=== PATIENT | female | born 1965 | race Caucasian/White ===

== ENCOUNTER → 2016-12-02 | Outpatient (CLI) | payer BC ==
[~2016-12-02] MED LIST: ASCO100061 PO; CHOL100027 PO; HYDR200T5 PO; LORA10CA2 PO; LORA10TA5 PO; RIZA1TAB7 PO; SYMIN8045 INH; TOPI100T45 PO
--- NOTE | 2016-12-03 12:32 | MAMMOGRAPHY REPORT ---
BILATERAL DIGITAL SCREENING MAMMOGRAM TOMOSYNTHESIS WITH CAD: 12/02/2016 CLINICAL HISTORY: Routine screening. Patient has no complaints. TECHNIQUE: Breast tomosynthesis in addition to standard 2D mammography was performed. Current study was also evaluated with a Computer Aided Detection (CAD) system. COMPARISON: Comparison is made to exams dated: 11/02/2014 mammogram, 11/01/2013 mammogram, 10/29/2012 ultrasound, 10/25/2010 ultrasound, 10/22/2009 mammogram - [facility], and 10/19/2008. BREAST COMPOSITION: There are scattered areas of fibroglandular density in both breasts. FINDINGS: The parenchymal pattern is unchanged. No developing mass, architectural distortion or clu ster of suspicious microcalcifications is seen in either breast. IMPRESSION: ACR BI-RADS CATEGORY 2: BENIGN There is no mammographic evidence of malignancy. A 1 year screening mammogram is recommended. The p atient will receive written notification of the results. Approximately 10% of breast cancers are not detected with mammography. A negative mammographic repor t should not delay biopsy if a clinically suggestive mass is present. Miriam Preciado M.D. ay/:12/02/2016 17:14:57 Senior Occupational Therapist: Iván Armstrong M, [facility] letter sent: Normal 1/2 BI-RADS Code: ACR BI-RADS Category 2: Benign
== END | disposition home or self-care (01) ==
LOC: C.MAMM 10:13
PROVIDERS: ATTEND Obstetrics & Gynecology
DX: Z12.31 Encounter for screening mammogram for malignant neoplasm of breast (principal)

== ENCOUNTER → 2017-01-27 | Outpatient (CLI) | payer BC ==
--- NOTE | 2017-01-27 09:08 | DIAGNOSTIC IMAGING REPORT ---
LEFT HAND MIN 3 VIEWS ROUTINE CLINICAL HISTORY: M32.9 Systemic lupus [id number] Bilateral dry eyesH04. COMPARISON: None. DISCUSSION: The bones and joint spaces appear intact. There is no evidence of fracture, dislocation or bony disease. There is no evidence for soft tissue swelling. IMPRESSION: Negative study. Electronically signed by: Fady Carmona M.D. 01/27/2017 9:07 AM Dictated Date/Time: 01/27/2017 9:06 AM
--- NOTE | 2017-01-27 09:10 | DIAGNOSTIC IMAGING REPORT ---
RIGHT HAND MIN 3 VIEWS ROUTINE CLINICAL HISTORY: M32.9 Systemic lupus [id number] Bilateral dry eyesH04. Right COMPARISON STUDY: None. FINDINGS: No fracture or dislocation. Soft tissues are unremarkable. No erosions. Cartilage spaces are maintained. Bone mineralization is intact. IMPRESSION: Unremarkable right hand. Electronically signed by: Cristiano Smith M.D. 01/27/2017 9:09 AM Dictated Date/Time: 01/27/2017 9:07 AM
== END | disposition home or self-care (01) ==
LOC: C.RAD1850 08:48
PROVIDERS: ATTEND Internal Medicine Rheumatology
DX: H04.123 Dry eye syndrome of bilateral lacrimal glands (principal); M32.9 Systemic lupus erythematosus, unspecified; M94.0 Chondrocostal junction syndrome [Tietze]

== ENCOUNTER → 2017-03-30 | Outpatient (CLI) | payer BC ==
--- NOTE | 2017-03-30 08:56 | DIAGNOSTIC IMAGING REPORT ---
CERVICAL WITHOUT CONTRAST HISTORY:51 [id number] Left hand weakness and numbness COMPARISON: None available. TECHNIQUE: Multiplanar multisequence MRI of the cervical spine was obtained without contrast. FINDINGS: The large ibqah-ea-jrxm localizer demonstrates no gross abnormality of the upper chest or neck soft tissues. The imaged posterior fossa is unremarkable without cerebellar tonsillar herniation. The cerebellar tonsils are somewhat low-lying projecting approximately 2 mm below the foramen magnum. The vertebral body heights are well-maintained without fracture. There is 2 mm anterolisthesis of C3 on C4 which is likely on a degenerative basis. There is no focal bone marrow or soft tissue edema. Signal within the cord is normal. No evidence of marrow replacing process. Multilevel discogenic degeneration and uncovertebral spurring is noted causing varying degrees of central and foraminal narrowing as below. C2-C3: Mild central posterior osteophytic spurring without significant central canal or foraminal narrowing. C3-C4: Mild intervertebral disc space narrowing with broad-based posterior disc osteophyte complex effaces the ventral thecal sac without significant central canal or foraminal narrowing. C4-C5: Moderate intervertebral disc space narrowing with broad-based posterior disc osteophyte complex and uncovertebral spurring causes mild central canal and mild to moderate left foraminal narrowing. The right foramen is generally patent. These findings are likely demonstrated on image 59 of the axial series. C5-C6: Moderate intervertebral disc space narrowing with annular fissure and broad-based posterior disc osteophyte complex with mild facet arthrosis causes mild central canal and moderate right foraminal narrowing. The left foramen is generally patent. C6-C7: Mild intervertebral disc space narrowing with broad-based posterior disc osteophyte complex formation and mild facet arthrosis causes mild central canal and mild left foraminal narrowing. The right foramen is generally patent. C7-T1: Normal. The remaining imaged upper thoracic levels also appear normal. IMPRESSION: 1. Moderate intervertebral disc space narrowing with broad-based posterior disc osteophyte complex formation at C4-C5 causes mild central canal and mild to moderate left foraminal narrowing. This may account for the patient's reported left-sided symptomatology. 2. At C5-C6 discogenic degeneration causes mild central canal and moderate right foraminal narrowing. 3. At C6-C7 mild facet arthrosis and discogenic degeneration contributes to mild central canal and mild left foraminal stenosis. 4. No fracture or bone marrow edema. The above report was generated using voice recognition software. It may contain grammatical, syntax or spelling errors. Electronically signed by: Remi Martinez M.D. 03/30/2017 8:54 AM Dictated Date/Time: 03/30/2017 8:45 AM
== END | disposition home or self-care (01) ==
LOC: C.MRIBC 07:48
PROVIDERS: ATTEND Physician Assistant
DX: R29.898 Other symptoms and signs involving the musculoskeletal system (principal)

== ENCOUNTER → 2017-04-09 | Outpatient (CLI) | payer BC ==
[~2017-04-09] MED LIST changes: +GADAVIST IV PRN
--- NOTE | 2017-04-09 09:35 | DIAGNOSTIC IMAGING REPORT ---
MRI OF THE BRAIN COMBO CLINICAL HISTORY: Left hand weakness. Numbness. Difficulty with word finding. COMPARISON STUDY: MRI of the brain dated 01/12/2014. TECHNIQUE: MRI of the brain was performed utilizing various T1 and T2-weighted sequences in the axial, sagittal, and coronal planes. Contrast-enhanced sequences were acquired following the administration of 9 cc of Gadavist. FINDINGS: Brain parenchyma: The brain parenchyma is normal in appearance. There is no hemorrhage or mass effect. There is no restricted diffusion to suggest acute ischemia. No enhancing mass lesion is identified on the postcontrast images. Osborn-white matter differentiation is preserved. No extra-axial fluid collection is seen. There is mild cerebellar tonsillar ectopia. Ventricles, sulci, and cisterns: Normal in configuration. Pituitary and sella: Unremarkable. Intracranial vasculature: Normal flow voids are maintained at the skull base. Orbits: The bony orbits are grossly intact. Orbital contents are normal in appearance. Sinuses and mastoids: Clear. Calvarium: Unremarkable. Cervical cord: Partially visualized cervical spinal cord is normal in morphology and signal intensity. IMPRESSION: No acute intracranial abnormality. Electronically signed by: Sander Luis M.D. 04/09/2017 9:34 AM Dictated Date/Time: 04/09/2017 9:31 AM
== END | disposition home or self-care (01) ==
LOC: C.MRIBC 08:46
PROVIDERS: ATTEND Psychiatry & Neurology Neurology
DX: R29.898 Other symptoms and signs involving the musculoskeletal system (principal); R20.0 Anesthesia of skin; R47.89 Other speech disturbances

== ENCOUNTER → 2017-05-15 | Outpatient (CLI) | payer BC ==
[~2017-05-15] MED LIST changes: -GADAVIST IV PRN
--- NOTE | 2017-05-15 12:00 | EEG Procedure Note ---
EEG Procedure Note Date of Service May 15, 2017. Start / End Times Start Time: 8:59 AM End Time: 9:19 AM Referring Physician GER Chang History This is a 51-year-old female with spells of decreased attentiveness. EEG for further evaluation of possible seizure etiology. Home Medication List Scheduled Ascorbic Acid (Ascorbic Acid), 1,000 MG PO DAILY Budesonide/Formoterol Fumarate (Symbicort 80-4.5 Mcg/Act), 1 PUFF INH BID Cholecalciferol (Vitamin D 1000 Unit), 2,000 INTER.UNIT PO DAILY Hydroxychloroquine Sulfate (Plaquenil), 200 MG PO DAILY Loratadine (Claritin), 10 MG PO DAILY Topiramate (Topamax), 100 MG PO QAM Topiramate (Topamax), 200 MG PO QPM Scheduled PRN Rizatriptan Benzoate (Rizatriptan Benzoate), 10 MG PO DAILY PRN for Migraine Miscellaneous Medications Loratadine (Claritin), 10 MG PO Description This is a 21 electrode EEG with a single channel dedicated to limited EKG. The electrodes were placed in accordance with the International 10-20 system. At the start of the recording the patient was in an awake state. Background was well organized and composed of symmetric mixed alpha and beta frequencies. There was a symmetric well-formed moderate amplitude 9-10 Hz posterior dominant rhythm that was reactive to eye opening and closure. Hyperventilation was not done. There was no state changes or sleep transients. Intermittent photic stimulation at various frequencies produced no EEG abnormalities, but patient did have clinical spells which were which were video reviewed At 15 Hz to 18 Hz photic stimulation the patient had episodes of slight head extension and bilateral hand shaking in pronation/supination. At around 22 Hz she was seen on video arching her back and hip thrusting. Around 24 Hz there is a combination of hand pronation/supination shaking, neck and back arching, and hip thrusting. Around 30 Hz there was alternating leg movement and shaking Between movements there was normal awake background activity. No focal slowing or epileptiform discharges. After photic stimulation the patient was not responding to the EEG techs questions. Despite being unresponsive to verbal cues , the patient had a normal awake background during this time. Interpretation This is a normal awake only routine EEG. There was no electrographic seizures or epileptiform discharges. Clinical Correlation Clinical events captured on video EEG are consistent with psychogenic nonepileptic events (otherwise known as pseudoseizures)
== END | disposition home or self-care (01) ==
LOC: C.NEUR 08:48
PROVIDERS: ATTEND Physician Assistant
DX: R68.89 Other general symptoms and signs (principal)

== ENCOUNTER → 2017-12-04 | Outpatient (CLI) | payer OTHER ==
[~2017-12-04] MED LIST changes: -LORA10TA5 PO; +LORA10TA6 PO
--- NOTE | 2017-12-07 12:41 | MAMMOGRAPHY REPORT ---
BILATERAL DIGITAL SCREENING MAMMOGRAM TOMOSYNTHESIS WITH CAD: 12/04/2017 CLINICAL HISTORY: Routine screening. Patient has no complaints. TECHNIQUE: Breast tomosynthesis in addition to standard 2D mammography was performed. Current study was also evaluated with a Computer Aided Detection (CAD) system. COMPARISON: Comparison is made to exams dated: 12/02/2016 mammogram, 11/30/2015 mammogram, 11/02/2014 m ammogram, 11/01/2013 mammogram, and 10/24/2011 mammogram - [facility]. BREAST COMPOSITION: There are scattered areas of fibroglandular density in both breasts. FINDINGS: There is a nodular 6 mm asymmetry seen within the left subareolar breast on the MLO view, n ot clearly evident on the CC view. Recommend additional imaging evaluation with spot compression veronica osynthesis views and possible breast ultrasound. The remainder of both breasts are stable compared to prior exams, without suspicious masses, calcific ations, or areas of architectural distortion noted. IMPRESSION: ACR BI-RADS CATEGORY 0: INCOMPLETE EVALUATION: NEED ADDITIONAL IMAGING EVALUATION Left breast asymmetry, for which additional imaging evaluation is recommended. The patient will be c alled to schedule an appointment. Approximately 10% of breast cancers are not detected with mammography. A negative mammographic report should not delay biopsy if a clinically suggestive mass is present. Mercedes Garner M.D. ah/:12/04/2017 16:26:19 Journeyman Welder: Roberta PERALTA)(Chip), [facility] letter sent: Addl Imaging 0 BI-RADS Code: ACR BI-RADS Category 0: Incomplete Evaluation: Need Additional Imaging Evaluation
== END | disposition home or self-care (01) ==
LOC: C.MAMM 08:50
PROVIDERS: ATTEND Obstetrics & Gynecology
DX: Z12.31 Encounter for screening mammogram for malignant neoplasm of breast (principal); N64.89 Other specified disorders of breast

== ENCOUNTER → 2017-12-23 | Outpatient (CLI) | payer OTHER ==
--- NOTE | 2017-12-24 07:58 | MAMMOGRAPHY REPORT ---
UNILATERAL LEFT DIGITAL DIAGNOSTIC MAMMOGRAM TOMOSYNTHESIS AND TARGETED LEFT ULTRASOUND: 12/23/2017 CLINICAL HISTORY: 52-year-old woman called back from screening mammography for a 6 mm nodular asymmet ry in the superior left breast on the MLO view. Family history of breast cancer = mother. TECHNIQUE: Spot compression left CC and MLO tomosynthesis images were obtained. COMPARISON: Comparison is made to exams dated: 12/04/2017 mammogram, 12/02/2016 mammogram, 11/30/2015 m ammogram, 11/02/2014 mammogram, 11/01/2013 mammogram, and 10/24/2011 mammogram - [facility]. BREAST COMPOSITION: There are scattered areas of fibroglandular density in the left breast. FINDINGS: The spot compression MLO tomosynthesis view of the left breast demonstrates possible persi stence of a 6 mm nodular asymmetry in the subareolar breast. No associated calcification or architec tural distortion. This is thought to project laterally based on the spot compression CC tomosynthesi s view although less conspicuous. There is no area of architectural distortion identified elsewhere in the visualized left breast. Targeted ultrasound was performed in the periareolar and subareolar left breast. In the 3:00 periare olar region, there is an isoechoic subtle possible intraductal mass versus fat lobule measuring 5.7 x 3.1 x 8.0 mm. This may possibly correlate with the mammographic finding and is indeterminate. Defi nitive characterization with ultrasound-guided core biopsy is recommended. Correlation with post pro cedure mammograms is also recommended to assess mammographicsonographic correlation for the 6 mm nod ular asymmetry. IMPRESSION: ACR BI-RADS CATEGORY 4: SUSPICIOUS, TARGETED ULTRASOUND ACR BI-RADS CATEGORY 4: SUSPICIO US 1. Ultrasound-guided core biopsy is recommended for a subtle isoechoic 8 mm mass versus prominent fa t lobule in the 3:00 periareolar left breast, which may possibly correlate with the mammographic find ing. Correlation with postprocedure mammograms is recommended to assess clip placement. These results and recommendations were discussed with the patient at the time of the exam. She tenta tively scheduled the biopsy prior to leaving our department. Approximately 10% of breast cancers are not detected with mammography. A negative mammographic report should not delay biopsy if a clinically suggestive mass is present. Miriam tierney/:12/23/2017 11:39:47 Maintenance Controller: Gayle PERALTA)(M), [facility] letter sent: Abnormal 4/5 BI-RADS Code: ACR BI-RADS Category 4: Suspicious Ultrasound BI-RADS: ACR BI-RADS Category 4: Suspici ous
== END | disposition home or self-care (01) ==
LOC: C.MAMM 10:41
PROVIDERS: ATTEND Obstetrics & Gynecology
DX: N64.89 Other specified disorders of breast (principal)

== ENCOUNTER → 2017-12-30 | Outpatient (CLI) | payer OTHER ==
--- NOTE | 2017-12-30 09:36 | Discharge Instructions ---
Discharge Instructions Procedure Procedure Date: Dec 30, 2017. Reason for visit: Left Mass. Discharge Discharge Date: Dec 30, 2017. Discharge Diagnosis: post left breast ultrasound guided core biopsy Instructions Activity Recommendations: Additional Limitations (see below) Return to School/Work: no limitations Recommended Home Diet: No Limitations Provider Instructions: ACTIVITY RECOMMENDATIONS: * No lifting, pushing, pulling or exercising the affected side for three days. RETURN TO SCHOOL/WORK: * You may return to work/school after the procedure, but do not perform any strenuous activities for 24 to 48 hours. MEDICATIONS: * Tylenol (two 325 mg) every four to six hours if needed for mild pain (if not allergic to Tylenol). DIET: * Resume previous diet. SPECIAL CARE INSTRUCTIONS: * Keep biopsy site dry for 24 hours. May shower after 24 hours, but do not soak (bathe) incision. * May remove Tegaderm (plastic patch) tomorrow AFTER showering. * Leave the steri-strips on for one week. Allow the steri-strips to fall off by themselves. If not off after one week, you may remove them. You may place a Bandaid crosswise over the strips, if desired. * Apply ice 10 minutes on and 10 minutes off as needed. * Wear a bra at bedtime to sleep more comfortably for 2-3 days. * Your referring physician should have the results after approximately 5 to 7 business days. * Call for unusual bleeding, fever, drainage, etc or if you have any questions call [phone] during normal business hours or after hours call Dr Preciado, . FOLLOW UP VISIT: Follow-up with Referring Physician as scheduled. Allergies Coded Allergies: Penicillins (Verified Allergy, Unknown, 01/12/14) Rofecoxib (Verified Allergy, Unknown, UNKN, 01/12/14) Sulfa Drugs (Verified Allergy, Unknown, 01/12/14) Ghazal Bowling Recommendations: Call your doctor if: * Temperature above 101 degrees * Pain not relieved by pain medicine ordered * There is increased drainage or redness from any incision * You have any unanswered questions or concerns. Your Doctors Instructions noted above were prepared by provider Miriam Preciado. Patient Signature Section: Patient Instructions Signature Page Tami Caldera Patient (or Guardian) Signature/Date: I have read and understand the instructions given to me by my caregivers. Caregiver/RN/Doctor Signature/Date: The above-named patient and/or guardian has received patient instructions on this date. + Original Patient Signature Page (only) stays with chart. Please make copy for patient.
--- NOTE | 2017-12-30 15:12 | MAMMOGRAPHY REPORT ---
ULTRASOUND GUIDED BIOPSY LEFT BREAST: 12/30/2017 CLINICAL HISTORY: 6 mm nodular asymmetry in the subareolar left breast, with possible sonographic cor relate in the 3:00 periareolar/retroareolar axis on ultrasound. Patient presents for ultrasound-guid ed core biopsy. COMPARISON: Comparison is made to exams dated: 12/23/2017 mammogram, 12/23/2017 ultrasound, 12/04/2017 mammogram, 12/02/2016 mammogram, 11/30/2015 mammogram, and 11/02/2014 mammogram - [facility]. PATIENT CONSENT: The procedure, risks and benefits were discussed with the patient and informed conse nt was obtained both verbally and in writing. Specific risks to this procedure include: bleeding, in fection, puncture of adjacent structure, nontarget biopsy, sampling error, pain, metal allergy and me dication reaction. PROCEDURE DESCRIPTION: A time out was performed and the left breast was agreed as the site of biopsy. The skin was prepped and draped in the usual sterile fashion. The isoechoic 6 mm mass in the 3:00 shanks bareolar breast was chosen as the target for biopsy. Subcutaneous and intraparenchymal 1% buffered li docaine, with and without epinephrine, was administered as local anesthesia. A skin incision was made . Through the incision, 5 samples were taken with a 14 gauge Achieve biopsy device. A ribbon shaped metallic marker was placed at the biopsy site. Hemostasis was achieved after manual compression. The patient tolerated the procedure well and there was no immediate complication. The samples were sent to the pathology department in an appropriately labeled container. Postprocedure left CC and MLO 2D and tomosynthesis images were obtained. A new ribbon-shaped biopsy marker clip is seen in the subareolar/3:00 periareolar left breast. Based on the MLO view, the biops y marker clip aligns with a 6 mm nodular asymmetry in question, confirming mammographicsonographic c orrelation. No significant postbiopsy hematoma identified. IMPRESSION: ULTRASOUND GUIDED BIOPSY Status post ultrasound-guided core biopsy of an isoechoic 6 mm mass in the 3:00 periareolar/subareola r left breast, with ribbon-shaped biopsy marker clip placed at the site. The patient will receive notification of the biopsy results from her referring physician. Miriam Preciado M.D. ay/:12/30/2017 10:14:00 Golf Club Manager: Gayle LAMAR(Iván)(M), [facility]
--- NOTE | 2017-12-30 15:15 | MAMMOGRAPHY REPORT ---
UNILATERAL LEFT DIGITAL DIAGNOSTIC MAMMOGRAM TOMOSYNTHESIS: 12/30/2017 CLINICAL HISTORY: Status post ultrasound-guided core biopsy of an isoechoic mass versus prominent fat lobule in the 3:00 periareolar left breast. Please refer to the report from left breast ultrasound-guided core biopsy performed at the same time for full detail. IMPRESSION: POST PROCEDURE IMAGING FOR MARKER PLACEMENT Please refer to the report from left breast ultrasound-guided core biopsy performed at the same time for full detail. Approximately 10% of breast cancers are not detected with mammography. A negative mammographic report should not delay biopsy if a clinically suggestive mass is present. Miriam Preciado M.D. ay/:12/30/2017 09:38:56 Welder 2Nd Shift: Alicia LAMAR(Iván)(Chip), [facility] BI-RADS Code: Post Procedure Imaging For Marker Placement
== END | disposition home or self-care (01) ==
LOC: C.MAMM 08:49
PROVIDERS: ATTEND Obstetrics & Gynecology
DX: N63.20 Unspecified lump in the left breast, unspecified quadrant (principal); D24.2 Benign neoplasm of left breast

== ENCOUNTER 2018-12-31 11:58 | Observation (INO) ==
[2018-12-31] MEDS ORDERED: SODIUM CHLORIDE 0.9% 1000ML 1,000 ML IV ONE (12:46)
[2018-12-31 13:18] LABS: Basophils # (auto) 0.06 K/uL (0-0.2); Basophils % (auto) 1.1 %; Eosinophils # (auto) 0.16 K/uL (0-0.5); Hemoglobin 13.9 g/dL (12.0-16.0); Immature Granulocytes # (auto) 0.01 K/uL (0.00-0.02); Immature Granulocytes % (auto) 0.2 %; Lymphocytes # (auto) 1.51 K/uL (1.2-3.4); Lymphocytes % (auto) 28.4 %; Mean Corpuscular Hgb Conc 32.3 g/dL (32-36); Mean Corpuscular Volume 91.1 fL (80-100); Mean Platelet Volume 11.2 fL (7.4-10.4); Monocytes # (auto) 0.36 K/uL (0.11-0.59); Monocytes % (auto) 6.8 %; Neutrophils # (auto) 3.21 K/uL (1.4-6.5); Neutrophils % (auto) 60.5 %; Platelet Count 213 K/uL (130-400); RDW Coefficient of Variation 12.9 % (11.5-14.5); RDW Standard Deviation 43.1 fL (36.4-46.3); Red Blood Count 4.72 M/uL (4.2-5.4); White Blood Count 5.31 K/uL (4.8-10.8)
--- NOTE | 2018-12-31 13:27 | XRay Report ---
XR chest 1V portable CLINICAL HISTORY: NEURO SYMPTOMS chest pain. Dyspnea. COMPARISON STUDY: 01/12/2014 FINDINGS: The bones soft tissues and hemidiaphragms are normal. The cardiomediastinal silhouette is n ormal. The lungs are clear. The pulmonary vasculature is normal. IMPRESSION: Negative chest. The above report was generated using voice recognition software. It may contain grammatical, syntax or spelling errors. Electronically signed by: Fady Carmona M.D. 12/31/2018 1:25 PM
[2018-12-31 13:31] LABS: Partial Thromboplastin Ratio 0.9; Partial Thromboplastin Time 25.4 Seconds (21.0-31.0); Prothrombin Time 10.5 Seconds (9.0-12.0)
[2018-12-31 13:37] LABS: Alanine Aminotransferase 23 U/L (12-78); Albumin Level 3.9 gm/dl (3.4-5.0); Aspartate Aminotransferase 20 U/L (15-37); BUN Creatinine Ratio 11.1 (10-20); Blood Urea Nitrogen 14 mg/dl (7-18); Calcium 9.4 mg/dl (8.5-10.1); Carbon Dioxide 24 mmol/L (21-32); Chloride 112 mmol/L (98-107); Creatinine Clr Calc Pharmacy 55.8 ml/min; Est GFR (African American) 58.2; Est GFR (Non-African American) 50.2; Glucose 88 mg/dl (70-99); Magnesium 2.5 mg/dl (1.8-2.4); Potassium 3.7 mmol/L (3.5-5.1); Sodium 143 mmol/L (136-145)
[2018-12-31 13:42] LABS: Albumin Globulin Ratio 1.1 (0.9-2); Alkaline Phosphatase 77 U/L (45-117); Bilirubin,Total 0.3 mg/dl (0.2-1); Globulin 3.6 gm/dl (2.5-4.0); Total Protein 7.5 gm/dl (6.4-8.2); Troponin I < 0.015 ng/ml (0-0.045)
--- NOTE | 2018-12-31 14:04 | CT Scan Report ---
CT head/brain wo con CT DOSE: 537.48 mGy.cm HISTORY: Mental status change Stroke evaluation TECHNIQUE: Multiaxial CT images of the head were performed without the use of intravenous contrast. A dose lowering technique was utilized adhering to the principles of ALARA. Comparison: None. Findings: The paranasal sinuses and mastoid air cells are clear. The calvarium and skull base are int act. The ventricles and sulci are within normal limits. There is no mass, hematoma, midline shift, or acute infarct. Impression: No acute intracranial abnormality. The above report was generated using voice recognition software. It may contain grammatical, syntax or spelling errors. Electronically signed by: Fady Carmona M.D. 12/31/2018 2:03 PM
--- NOTE | 2018-12-31 17:04 | History & Physical Report ---
Date of Service December 31, 2018 Assessment & Plan (1) Left facial numbness: Ddx includes complex migraine vs. TIA given the numbness & possible ptosis, then possible dysarthria (possible Wernicke's?) on the phone with her PCP. At this point, all symptoms have resolved. - MRI brain - Neurology consult in the morning - Telemetry monitoring - Hold off on anti-platelet therapy until seen by neurology (2) Migraine: History of migraines (though not typically with these neurologic symptoms). - Continue home migraine prophylaxis - Tylenol or triptan PRN (3) TIA (transient ischemic attack): Per patient and , she was told by a [facility] neurologist that she is likely having TIAs when she feels her left face get numb and has some transient ptosis. Despite this, she was not put on an anti-platelet agent, so I am unsure if this is the neurologist felt strongly about this or not. - Neuro consult as above (4) Asthma: No wheezing or shortness of breath. No exacerbation at this time. 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 Now just on observation. - Monitor; no inpatient needs. (6) DVT prophylaxis: SCDs - Low risk per calculator History of Present Illness Primary Care Provider: Salma Snell MD 53-year-old female with a history of migraines, SLE, trigeminal neuralgia, and possible TIAs who presents with facial numbness and confusion. Patient notes that she has had a headache over the last 2 days, taken her Maxalt both evenings before bed. This morning at approximately 10:30 AM, she noted some left-sided facial numbness while driving her car. She went to the pharmacy at [employer] and felt that she was not thinking clearly because she could not remember her daughter's birthday and was walking around [employer] aimlessly. She called her PCP who called an ambulance for her. She has a complex neurologic history: 1) She has complex migraines and is seen by Dr. Dunne. 2) She is seen by a [facility] neurologist and was recently diagnosed with trigeminal neuralgia and told she is probably having small TIAs. These episodes are left-sided facial droop that lasts several hours, then resolves. 3) She reported with Dr. Dunne that she has episodes of getting "pulled" to the left side with vertigo that resolves within seconds and was referred to an ENT. 4) She reportedly had possible seizures in the past where she fell on the ground and her eyes rolled in her head (this per her ). She was seen at [facility], had a home 24h EEG and this was normal. She was supposed to follow up for an inpatient EEG, but never pursued this. The last episode of this was "years ago" per her . Allergies Allergy/AdvReac Type Severity Reaction Status Date / Time Penicillins Allergy Unknown Verified 12/31/18 13:17 rofecoxib Allergy Unknown UNKN Verified 12/31/18 13:17 Sulfa (Sulfonamide Allergy Unknown Verified 12/31/18 13:17 Antibiotics) Home Medications Home Medications Medication Instructions Recorded Confirmed Type albuterol sulfate [ProAir HFA] 2 puff INHALATION UD PRN 12/31/18 12/31/18 History ascorbic acid (vitamin C) [Vitamin 1 g PO QAM 12/31/18 12/31/18 History C] budesonide-formoterol [Symbicort] 1 inh INHALATION QAM 12/31/18 12/31/18 History calcium carbonate [Calcium 500] 1 tab PO QAM 12/31/18 12/31/18 History carbamazepine 100 mg PO DAILY PRN 12/31/18 12/31/18 History cholecalciferol (vitamin D3) 1,000 unit PO QAM 12/31/18 12/31/18 History loratadine [Claritin] 10 mg PO QAM 12/31/18 12/31/18 History montelukast 10 mg PO PM 12/31/18 12/31/18 History ranitidine HCl 150 mg PO BID 12/31/18 12/31/18 History topiramate 200 mg PO BID 12/31/18 12/31/18 History venlafaxine 75 mg PO DAILY 12/31/18 12/31/18 History verapamil 240 mg PO DAILY 12/31/18 12/31/18 History Past Med/Surg History Medical History TIA (transient ischemic attack) (Acute) Asthma (Chronic) Migraine SLE (systemic lupus erythematosus related syndrome) Family History Other Cancer Heart disease Social History Preferred Language: Turkish Communication Ability: Effective Blocker Hand Required: No Beliefs That Will Affect Care: None Current Living Situation: Family Other Information That Helps Us Care for You: No Feels Safe at Home: Yes Safety Concerns: Feels Safe At This Time Smoking Status: Former smoker Do You Dip or Chew Tobacco: No Second Hand Exposure: No Tobacco Cessation Education Requested by Patient: No Hx Alcohol Use: No Hx Substance Use: No Review of Systems Constitutional: no fever, no chills and no sweats Eyes: no diplopia Ear, Nose, Mouth, Throat: no ear trauma, no nasal discharge and no dental pain Respiratory: no cough, no chest congestion and no dyspnea Cardiovascular: no chest pain, no dyspnea on exertion, no palpitations and no syncope Gastrointestinal: no abdominal pain, no belching, no constipation, no diarrhea/loose stools, no blood in stools and no melena Musculoskeletal: no back pain, no joint pain and no muscle weakness Integumentary: no rash, no skin ulcer and no erythema Neurologic: + loss of sensation (Face), + tingling, + headache(s), + abnormal speech, + confusion and + memory loss; no generalized weakness, no numbness and no paresthesia Psychiatric: no depression and no anxiety Endocrine: no fatigue, no polydipsia and no polyphagia Physical Exam Constitutional: WD/WN, vitals as above Eyes: EOM intact bilaterally; no conjunctival abnormality ENMT: external ear and nose normal, oropharynx normal Neck: trachea midline, no thyromegaly normal visual inspection Respiratory: normal respiratory effort, lungs clear to auscultation no respiratory distress Cardiovascular: RRR, no murmur, no edema Gastrointestinal (Abdomen): Inspection/Auscultation: abdomen normal to inspection; abdomen not distended Musculoskeletal: no cyanosis or clubbing, extremities motor strength 5/5 Skin: no rashes, warm and dry Neurologic: moves all extremities and awake Psychiatric: Orientation: alert, oriented to person and cooperative Results & Data Vital Signs (Past 12 Hours) Vital Signs Temp Pulse Pulse Resp BP BP Pulse Ox 12/31/18 16:16 75 20 137/90 98 12/31/18 15:06 69 18 128/87 98 12/31/18 13:49 68 18 137/86 98 12/31/18 12:08 36.8 C 79 20 163/90 H 98
[2018-12-31] MEDS ORDERED: ONDANSETRON INJ 2 MG/ML 2 ML VIAL IV PRN (17:14)
[2018-12-31] MEDS ORDERED: ACETAMINOPHEN 325 MG TAB PO PRN (17:14)
--- NOTE | 2018-12-31 18:16 | Magnetic Resonance Report ---
Brain MRI WITHOUT CONTRAST HISTORY: Facial tingling and dysarthria TECHNIQUE: Multiplanar multisequence MRI of the brain was performed without the use of contrast. COMPARISON STUDY: Head CT 12/31/2018. Brain MRI 04/09/2017. FINDINGS: There are no areas of restricted diffusion to suggest acute infarction. The midline structu res are intact. The paranasal sinuses are clear. The mastoid air cells are clear. The ventricles and sulci are within normal limits for age. There is no mass, hematoma, midline shift. The major vascular flow-voids at the skull base are well maintained. IMPRESSION: No acute intracranial abnormality. Electronically signed by: Cristiano Smith M.D. 12/31/2018 6:15 PM
--- NOTE | 2018-12-31 19:12 | Emergency Department Note ---
Entered by Seth Wise acting as a scribe for Giorgio López DO History of Present Illness General Chief complaint: Neuro Symptoms/Deficit Source: patient History of Present Illness Onset (ago): hour(s) (this morning) Location: face Pain Consistency: + now resolved Quality: + other (stroke-like symptoms) Associated symptoms: + other (slurred speech, left facial droop) The patient is a 53 year female who presents to the Emergency Room with complaints of currently resolved stroke-like symptoms. The patient reports that this morning both sides of her face became numb, reaching her hairline and did not travel behind her ears. She states that she then developed a left-sided facial droop, and she was told that her speech was slurred prior to arrival. She is unsure how long these symptoms lasted. She states that her symptoms are now resolved, and she is back to baseline per the at bedside. She reports that yesterday and the day prior she had a headache, but she has not had a headache today. She denies weakness, numbness, chest pain, nausea, vomiting, or diarrhea. She reports a history of similar symptoms, stating that she was diagnosed with TIA at that time. She reports a history of lupus, migraines, and trigeminal neuralgia. Home Medications Home Medications Medication Instructions Recorded Confirmed Type albuterol sulfate [ProAir HFA] 2 puff INHALATION UD PRN 12/31/18 12/31/18 History ascorbic acid (vitamin C) [Vitamin 1 g PO QAM 12/31/18 12/31/18 History C] budesonide-formoterol [Symbicort] 1 inh INHALATION QAM 12/31/18 12/31/18 History calcium carbonate [Calcium 500] 1 tab PO QAM 12/31/18 12/31/18 History carbamazepine 100 mg PO DAILY PRN 12/31/18 12/31/18 History cholecalciferol (vitamin D3) 1,000 unit PO QAM 12/31/18 12/31/18 History loratadine [Claritin] 10 mg PO QAM 12/31/18 12/31/18 History montelukast 10 mg PO PM 12/31/18 12/31/18 History ranitidine HCl 150 mg PO BID 12/31/18 12/31/18 History topiramate 200 mg PO BID 12/31/18 12/31/18 History venlafaxine 75 mg PO DAILY 12/31/18 12/31/18 History verapamil 240 mg PO DAILY 12/31/18 12/31/18 History Allergies Allergy/AdvReac Type Severity Reaction Status Date / Time Penicillins Allergy Unknown Verified 12/31/18 13:17 rofecoxib Allergy Unknown UNKN Verified 12/31/18 13:17 Sulfa (Sulfonamide Allergy Unknown Verified 12/31/18 13:17 Antibiotics) Past Med/Surg History Medical History TIA (transient ischemic attack) (Acute) Asthma (Chronic) Migraine SLE (systemic lupus erythematosus related syndrome) Family History Other Cancer Heart disease Social History Preferred Language: Serbian Communication Ability: Effective Pediatric Cardiologist Required: No Beliefs That Will Affect Care: None Current Living Situation: Family Other Information That Helps Us Care for You: No Feels Safe at Home: Yes Safety Concerns: Feels Safe At This Time Smoking Status: Former smoker Do You Dip or Chew Tobacco: No Second Hand Exposure: No Tobacco Cessation Education Requested by Patient: No Hx Alcohol Use: No Hx Substance Use: No Review of Systems See HPI for pertinent positives & negatives. and A total of 10 systems reviewed and were otherwise negative Physical Exam Vital Signs Vital Signs - 24 hr 12/31/18 12:08 12/31/18 13:49 12/31/18 15:06 Temperature 36.8 C Temperature Source Oral Sepsis Recent Fever Within 48 Hours No Sepsis New/Unexplained Change in Mental Status No Sepsis Action Taken by Nursing No Action Required Pulse Rate 79 Pulse Rate [Apical] 68 69 Pulse Rhythm [Apical] Pulse Strength [Apical] Respiratory Rate 20 18 18 Respiratory Effort / Characteristics Respiratory Depth Respiratory Pattern Blood Pressure 163/90 H Blood Pressure [Left Arm] Blood Pressure [Right Arm] 137/86 128/87 Blood Pressure Mean 114 Blood Pressure Mean [Left Arm] Blood Pressure Mean [Right Arm] 103 100 Blood Pressure Position [Left Arm] Pulse Oximetry 98 98 98 Oxygen Delivery Method Room Air Room Air Room Air 12/31/18 16:16 12/31/18 16:22 12/31/18 17:14 Temperature 36.7 C Temperature Source Oral Sepsis Recent Fever Within 48 Hours Sepsis New/Unexplained Change in Mental Status Sepsis Action Taken by Nursing Pulse Rate Pulse Rate [Apical] 75 71 Pulse Rhythm [Apical] Regular Pulse Strength [Apical] Normal Respiratory Rate 20 18 Respiratory Effort / Characteristics Non-Labored Respiratory Depth Normal Respiratory Pattern Regular Blood Pressure Blood Pressure [Left Arm] 142/64 H Blood Pressure [Right Arm] 137/90 Blood Pressure Mean Blood Pressure Mean [Left Arm] 90 Blood Pressure Mean [Right Arm] 105 Blood Pressure Position [Left Arm] Lying Pulse Oximetry 98 98 Oxygen Delivery Method Room Air Room Air Room Air GENERAL: Sitting up in bed, alert, well appearing, well nourished, no distress, non-toxic EYE EXAM: normal conjunctiva. PERRL and EOM's intact. OROPHARYNX: no exudate, no erythema, lips, buccal mucosa, and tongue normal and mucous membranes are moist NECK: supple, no nuchal rigidity, no adenopathy, non-tender LUNGS: Clear to auscultation. Normal chest wall mechanics HEART: no murmurs, S1 normal and S2 normal ABDOMEN: abdomen soft, non-tender, normo-active bowel, sounds, no masses, no rebound or guarding. BACK: Back is symmetrical on inspection and there is no deformity, no midline tenderness, no CVA tenderness. SKIN: no rashes and no bruising UPPER EXTREMITIES: upper extremities are grossly normal. LOWER EXTREMITIES: No pitting edema. NEURO EXAM: Normal sensorium, cranial nerves II-XII intact, normal speech, no weakness of arms, no weakness of legs. No drift. Finger to nose intact. Sensation intact. Course ED COURSE: Vital signs were reviewed and showed hypertension The patients medical record was reviewed The above diagnostic studies were performed and reviewed. ED treatments and interventions as stated above. 1230: The patient was evaluated in room B5. A complete history and physical examination was performed. 1417: I consulted Dr. Wynn [facility] Hospitalist. The patient will be reevaluated for hospitalization. 1426: I updated the patient on the current plan. She states that she woke up and temporarily felt some left-sided facial droop again, but this is now resolved. The patient is currently completely neurologically intact. Based on the patients age, coexisting illnesses, exam and lab findings the decision to treat as an inpatient was made. The patient remained stable while under my care. The patient will be evaluated for further management. Administered Medications Acetaminophen (Tylenol) 650 mg PO Q4H PRN PRN Reason: pain/fever Stop: 01/30/19 17:13 Last Admin: 12/31/18 18:54 Dose: 650 mg Documented by: [id number] Discontinued Medications Sodium Chloride (Nss 1000ml) 1,000 mls @ 999 mls/hr IV .Q1H1M ONE Stop: 12/31/18 13:46 Last Infusion: 12/31/18 14:02 Dose: 0 mls/hr Documented by: [id number] Admin: 12/31/18 13:04 Dose: 999 mls/hr Documented by: [id number] Medical Decision Making Differential Diagnosis Differential Diagnosis includes but is not limited to ischemic stroke, hemorrhagic stroke, bells palsy, mass, neoplasm, migraine headache, seizure, subarachnoid hemorrhage, TIA, and transient global amnesia. Medical Records Attestation: I reviewed the patient's medical records. Home Medications Current Medication List: was personally reviewed by me Laboratory Data Attestation: I reviewed the patient's lab results. Result diagrams: 12/31/18 12:54 12/31/18 12:54 Lab Results 12/31/18 12/31/18 12/31/18 Range/Units 12:54 12:54 12:54 WBC 5.31 (4.8-10.8) K/uL RBC 4.72 (4.2-5.4) M/uL Hgb 13.9 (12.0-16.0) g/dL Hct 43.0 (37-47) % MCV 91.1 (80-100) fL MCH 29.4 (25-34) pg MCHC 32.3 (32-36) g/dL RDW Std Deviation 43.1 (36.4-46.3) fL RDW Coeff of Estela 12.9 (11.5-14.5) % Plt Count 213 (130-400) K/uL MPV 11.2 H (7.4-10.4) fL Immature Gran % (Auto) 0.2 % Neut % (Auto) 60.5 % Lymph % (Auto) 28.4 % Dauphin % (Auto) 6.8 % Eos % (Auto) 3.0 % Baso % (Auto) 1.1 % Immature Gran # (Auto) 0.01 (0.00-0.02) K/uL Neut # (Auto) 3.21 (1.4-6.5) K/uL Lymph # (Auto) 1.51 (1.2-3.4) K/uL Dauphin # (Auto) 0.36 (0.11-0.59) K/uL Eos # (Auto) 0.16 (0-0.5) K/uL Baso # (Auto) 0.06 (0-0.2) K/uL PT 10.5 (9.0-12.0) Seconds INR 1.0 (0.9-1.1) APTT 25.4 (21.0-31.0) Seconds PTT Ratio 0.9 Sodium 143 (136-145) mmol/L Potassium 3.7 (3.5-5.1) mmol/L Chloride 112 H (98-107) mmol/L Carbon Dioxide 24 (21-32) mmol/L Anion Gap 7.0 (3-11) BUN 14 (7-18) mg/dl Creatinine 1.22 H (0.6-1.2) mg/dl Est Cr Clr Drug Dosing 55.8 ml/min Est GFR ( Amer) 58.2 Est GFR (Non-Af Amer) 50.2 BUN/Creatinine Ratio 11.1 (10-20) Glucose 88 (70-99) mg/dl POC Glucose (70-99) Calcium 9.4 (8.5-10.1) mg/dl Magnesium 2.5 H (1.8-2.4) mg/dl Total Bilirubin 0.3 (0.2-1) mg/dl AST 20 (15-37) U/L ALT 23 (12-78) U/L Alkaline Phosphatase 77 (45-117) U/L Troponin I < 0.015 (0-0.045) ng/ml Total Protein 7.5 (6.4-8.2) gm/dl Albumin 3.9 (3.4-5.0) gm/dl Globulin 3.6 (2.5-4.0) gm/dl Albumin/Globulin Ratio 1.1 (0.9-2) POC Ur Test (NEG) Blood Type Antibody Screen 12/31/18 12/31/18 12/31/18 Range/Units 12:58 13:00 13:10 WBC (4.8-10.8) K/uL RBC (4.2-5.4) M/uL Hgb (12.0-16.0) g/dL Hct (37-47) % MCV (80-100) fL MCH (25-34) pg MCHC (32-36) g/dL RDW Std Deviation (36.4-46.3) fL RDW Coeff of Estela (11.5-14.5) % Plt Count (130-400) K/uL MPV (7.4-10.4) fL Immature Gran % (Auto) % Neut % (Auto) % Lymph % (Auto) % Dauphin % (Auto) % Eos % (Auto) % Baso % (Auto) % Immature Gran # (Auto) (0.00-0.02) K/uL Neut # (Auto) (1.4-6.5) K/uL Lymph # (Auto) (1.2-3.4) K/uL Dauphin # (Auto) (0.11-0.59) K/uL Eos # (Auto) (0-0.5) K/uL Baso # (Auto) (0-0.2) K/uL PT (9.0-12.0) Seconds INR (0.9-1.1) APTT (21.0-31.0) Seconds PTT Ratio Sodium (136-145) mmol/L Potassium (3.5-5.1) mmol/L Chloride (98-107) mmol/L Carbon Dioxide (21-32) mmol/L Anion Gap (3-11) BUN (7-18) mg/dl Creatinine (0.6-1.2) mg/dl Est Cr Clr Drug Dosing ml/min Est GFR ( Amer) Est GFR (Non-Af Amer) BUN/Creatinine Ratio (10-20) Glucose (70-99) mg/dl POC Glucose 90 (70-99) Calcium (8.5-10.1) mg/dl Magnesium (1.8-2.4) mg/dl Total Bilirubin (0.2-1) mg/dl AST (15-37) U/L ALT (12-78) U/L Alkaline Phosphatase (45-117) U/L Troponin I (0-0.045) ng/ml Total Protein (6.4-8.2) gm/dl Albumin (3.4-5.0) gm/dl Globulin (2.5-4.0) gm/dl Albumin/Globulin Ratio (0.9-2) POC Ur Test NEG (NEG) Blood Type A Positive Antibody Screen NEGATIVE Imaging Data Radiologist's Impression: Radiology results as stated below per my review and the radiologist's interpretation: XR chest 1V portable CLINICAL HISTORY: NEURO SYMPTOMS chest pain. Dyspnea. COMPARISON STUDY: 01/12/2014 FINDINGS: The bones soft tissues and hemidiaphragms are normal. The cardiomed iastinal silhouette is normal. The lungs are clear. The pulmonary vasculature is normal. IMPRESSION: Negative chest. The above report was generated using voice recognition software. It may contain grammatical, syntax or spelling errors. Electronically signed by: Fady Carmona M.D. 12/31/2018 1:[address] head/brain wo con CT DOSE: 537.48 mGy.cm HISTORY: Mental status change Stroke evaluation TECHNIQUE: Multiaxial CT images of the head were performed without the use of intravenous contrast. A dose lowering technique was utilized adhering to the principles of ALARA. Comparison: None. Findings: The paranasal sinuses and mastoid air cells are clear. The calvarium and skull base are intact. The ventricles and sulci are within normal limits. There is no mass, hematoma, midline shift, or acute infarct. Impression: No acute intracranial abnormality. The above report was generated using voice recognition software. It may contain grammatical, syntax or spelling errors. Electronically signed by: Fady Carmona M.D. 12/31/2018 2:03 PM ECG Data Attestation: I personally reviewed and interpreted this ECG as follows: Indication: other (stroke-like symptoms) Rate (beats per minute): 74 Rhythm: sinus rhythm Findings: + other (normal axis); no PVC Blood Pressure Blood Pressure Findings: Normal blood pressure Blood Pressure Disposition: did not require urgent referral MDM Narrative Patient is a 53-year-old female who presents the ER for tingling throughout her entire face and a left-sided facial droop along with expressive aphasia. Left- sided facial droop did not involve the forehead. She notes that she was unable to talk. This was noted by bystanders and EMS was called. Patient does have a previous history of a TIA and complex migraines. She has no headache today but has had some recently. Labs were obtained and showed no significant leukocytosis or anemia. INR was unremarkable. BMP along with LFTs bilirubin was unremarkable. was negative. CT head was negative. Her neuro exam was completely intact when she presented here. She is no focal deficit. There is a short period time when I presented on 1 of her redevelops which she noted she had a little bit of a facial droop. I asked her to open her mouth she would not open to smile completely and a question if she was manipulating a left-sided facial droop at this time. I assisted her with opening and closing her mouth several times and this resolved very quickly. Patient and were updated bedside and admitted to the hospital for further workup. Impression & Plan TIA (transient ischemic attack) Discharge Plan Visit Data *Final* Discharge Date/Time: 12/31/18 16:22 Chief Complaint: Neuro Symptoms/Deficit ED Provider: Giorgio López Discharge Problem: TIA (transient ischemic attack) Patient Disposition: Admitted As Inpatient Discharge Instructions Interventions: ED Discharge Assessment Last Done: 12/31/18 16:22 The scribe's documentation has been prepared under my direction and personally reviewed by me in its entirety. I confirm that the note above accurately reflects all work, treatment, procedures, and medical decision making performed by me.
[2018-12-31] MEDS: TOPIRAMATE 100 MG TAB PO SCH (20:14)
[2018-12-31] MEDS ORDERED: MONTELUKAST SODIUM 10 MG TABLET PO SCH (21:00)
[2019-01-01 06:40] LABS: Hematocrit (blood only) 40.2 % (37-47); Hemoglobin 13.2 g/dL (12.0-16.0); Mean Corpuscular Hgb Conc 32.8 g/dL (32-36); Mean Corpuscular Volume 89.3 fL (80-100); Platelet Count 207 K/uL (130-400); RDW Standard Deviation 41.9 fL (36.4-46.3); White Blood Count 4.01 K/uL (4.8-10.8)
[2019-01-01 07:15] LABS: BUN Creatinine Ratio 12.9 (10-20); Calcium 8.9 mg/dl (8.5-10.1); Est GFR (African American) 55.9; Est GFR (Non-African American) 48.3; Magnesium 2.3 mg/dl (1.8-2.4); Potassium 3.8 mmol/L (3.5-5.1)
[2019-01-01] MEDS: TOPIRAMATE 100 MG TAB PO SCH (08:27)
[2019-01-01] MEDS ORDERED: BUDESONIDE/FORMOTEROL FUMARATE 160/4.5 60 PUFFS/INHALER INH SCH (09:00)
[2019-01-01] MEDS ORDERED: VERAPAMIL HCL 240 MG TABCR PO SCH (09:00)
[2019-01-01] MEDS ORDERED: VENLAFAXINE HCL XR 75 MG CAPXR PO SCH (09:00)
--- NOTE | 2019-01-01 13:45 | Neurology Consultation ---
Date of Consultation January 01, 2019 Assessment & Plan (1) Migraine with aura: This is a 53-year-old female who presents with episode of face tingling mostly on the left, facial droop, and confusion yesterday that was most likely related to migraine headaches that she has been having recently. In addition topiramate can cause cognitive dysfunction and word finding trouble. Symptoms may have been exacerbated by anxiety. Considering that the patient has had facial tingling and left facial droop multiple times in the past, this indicates that the symptoms are not vascular, and I have no concern for TIA at this time. 2) reports of unresponsive episodes with eye fluttering. Appears to be an ongoing problem. My suspicion is that this may be consistent with psychogenic nonepileptic events, but the patient does need to follow-up in neurology clinic for further evaluation and likely needs an epilepsy monitoring unit to capture and diagnosis spells. Recommendations: No additional workup needed in hospital at this time. Follow-up in neurology clinic for migraine care and for further evaluation of unresponsive episodes. Instructed patient to call our clinic if there is any questions or concerns. Patient does already have follow-up appointment with Dr. Dunne in January. Thank you for allowing me to participate in this patient's care. If there is any questions or concerns, feel free to call/page me. History of Present Illness Reason for Consultation: Consultation for episode of TIA versus migraine Attending Physician: Neptali Norris MD History of Present Illness This is a 53-year-old female who presents for the above evaluation. She reports that yesterday while she was going to [employer] she had episode of left facial droop. She reports that she has had frequent left facial droop in the past possibly related to migraine headaches. In addition she felt like her whole face was tingling that day. Again she has had multiple episodes of face tingling in the past possibly related to migraine headaches. What concerned her yesterday is she felt that she had increased confusion when she went to the pharmacy to filler picker medications. She reports that she was unable to remember her daughter's birthday or her 's birthday. She felt foggy and confused. She had had a severe migraine headache Thursday and and had a return of the migraine headache Thursday afternoon. She reports that she still feels a little fuzzy in the head this morning. She also reports that this morning the face tingling is mostly on the left side now. is also concerned that she had a seizure-like events in the emergency room yesterday. He reports that she has had these events previously in the past. Per the report and chart reports it has been documented that she has had staring events since she was a teenager. Has been reports that she has had these events of eye fluttering and unresponsiveness lasting about a minute for many years. Patient reports that is typically precipitated by stress. Patient has seen an epilepsy neurologist at [place] regarding these unresponsive events. She got ambulatory EEG in 2018 unfortunately was disconnected early and only 9 hours were recorded but it was normal. Epilepsy neurologist at [place] had recommended epilepsy monitoring unit stay for further evaluation, but the patient declined. EEG in 2017 was read by myself and noted to be normal but the patient did have multiple clinical events that were consistent with psychogenic nonepileptic events. Additional review of systems the patient reports that she feels more tired and is sleeping more. She reports increase in the wrong word substitution and word finding trouble. She does report the last time that she saw Dr. Dunne that her topiramate was increased. In addition she also reports a sharp pain over the occiput and temporal area of her head. She does report some jaw pain and there are is some question of possible trigeminal neuralgia component. MRI of the brain report and images reviewed by myself and is normal. Past medical history significant for lupus which is reportedly under control, migraine headaches with aura, benign positional vertigo, and at least one documented psychogenic nonepileptic events on video EEG. Family history: Father with [place]. No strokes or blood clots in the family at a young age Social: Patient is normally independent her activities of daily living. No tobacco use. Allergies Allergy/AdvReac Type Severity Reaction Status Date / Time Penicillins Allergy Unknown Verified 12/31/18 13:17 rofecoxib Allergy Unknown UNKN Verified 12/31/18 13:17 Sulfa (Sulfonamide Allergy Unknown Verified 12/31/18 13:17 Antibiotics) Home Medications Home Medications Medication Instructions Recorded Confirmed Type albuterol sulfate [ProAir HFA] 2 puff INHALATION UD PRN 12/31/18 12/31/18 History ascorbic acid (vitamin C) [Vitamin 1 g PO QAM 12/31/18 12/31/18 History C] budesonide-formoterol [Symbicort] 1 inh INHALATION QAM 12/31/18 12/31/18 History calcium carbonate [Calcium 500] 1 tab PO QAM 12/31/18 12/31/18 History carbamazepine 100 mg PO DAILY PRN 12/31/18 12/31/18 History cholecalciferol (vitamin D3) 1,000 unit PO QAM 12/31/18 12/31/18 History loratadine [Claritin] 10 mg PO QAM 12/31/18 12/31/18 History montelukast 10 mg PO PM 12/31/18 12/31/18 History ranitidine HCl 150 mg PO BID 12/31/18 12/31/18 History topiramate 200 mg PO BID 12/31/18 12/31/18 History venlafaxine 75 mg PO DAILY 12/31/18 12/31/18 History verapamil 240 mg PO DAILY 12/31/18 12/31/18 History Patient History Medical History TIA (transient ischemic attack) (Acute) Asthma (Chronic) Migraine SLE (systemic lupus erythematosus related syndrome) Family History Other Cancer Heart disease Social History Preferred Language: Tajik Communication Ability: Effective Radiologic Technology Instructor Required: No Beliefs That Will Affect Care: None Current Living Situation: Family Other Information That Helps Us Care for You: No Feels Safe at Home: Yes Safety Concerns: Feels Safe At This Time Smoking Status: Former smoker Do You Dip or Chew Tobacco: No Second Hand Exposure: No Tobacco Cessation Education Requested by Patient: No Hx Alcohol Use: No Hx Substance Use: No Review of Systems Review of Systems: All systems reviewed & are unremarkable except as noted in HPI & below Physical Exam Physical Exam: Gen.: Patient is alert and oriented in no acute distress lying in bed Heart: Regular rate and rhythm Extremities: No gross deformities or rashes noted Neurological examination: Mental status: Patient is alert and oriented to person place and time. Able to give own history. Good fund of knowledge. Attention and concentration normal for the situation. Recent and remote memory intact Speech is fluent without any dysarthria or aphasia noted Cranial nerves: Funduscopic examination was difficult to visualize. Pupils equally round and reactive to light. Extraocular muscles intact without nystagmus. No facial asymmetry noted. Facial sensation intact, but does report altered sensation on the left upper and lower face which appears to split midline. Tongue midline. Good palatal elevation. Good shoulder shrug bilaterally. Hearing grossly intact voice. Strength: 5/5 both proximal and distal in all extremities. No arm drift.Tone is normal. Sensation: Grossly intact to light touch in all extremities. Negative Romberg Deep tendon reflexes: +2 in bilateral biceps and patellar. Coordination: Patient has good finger to nose without dysmetria Gait is within normal limits and stable. No ataxia Results & Data Vital Signs (Past 12 Hours) Vital Signs Temp Pulse Resp BP Pulse Ox 01/01/19 11:36 78 18 131/82 97 01/01/19 07:34 36.7 C 71 18 116/73 100 01/01/19 03:47 36.6 C 79 18 102/64 96
--- NOTE | 2019-01-01 15:17 | Discharge Summary ---
Date of Service January 01, 2019 Admission HPI Per Admitting Provider 53-year-old female with a history of migraines, SLE, trigeminal neuralgia, and possible TIAs who presents with facial numbness and confusion. Patient notes that she has had a headache over the last 2 days, taken her Maxalt both evenings before bed. This morning at approximately 10:30 AM, she noted some left-sided facial numbness while driving her car. She went to the pharmacy at [employer] and felt that she was not thinking clearly because she could not remember her daughter's birthday and was walking around [employer] aimlessly. She called her PCP who called an ambulance for her. She has a complex neurologic history: 1) She has complex migraines and is seen by Dr. Dunne. 2) She is seen by a [facility] neurologist and was recently diagnosed with trigeminal neuralgia and told she is probably having small TIAs. These episodes are left-sided facial droop that lasts several hours, then resolves. 3) She reported with Dr. Dunne that she has episodes of getting "pulled" to the left side with vertigo that resolves within seconds and was referred to an ENT. 4) She reportedly had possible seizures in the past where she fell on the ground and her eyes rolled in her head (this per her ). She was seen at [facility], had a home 24h EEG and this was normal. She was supposed to follow up for an inpatient EEG, but never pursued this. The last episode of this was "years ago" per her . Principal Diagnosis Complex migraine Discharge Exam Constitutional WD/WN, vitals as above Eyes EOM intact bilaterally; no conjunctival abnormality ENMT external ear and nose normal, oropharynx normal Neck trachea midline, no thyromegaly normal visual inspection Respiratory normal respiratory effort, lungs clear to auscultation no respiratory distress Cardiovascular RRR, no murmur, no edema Gastrointestinal (Abdomen) Inspection/Auscultation: abdomen normal to inspection; abdomen not distended Musculoskeletal no cyanosis or clubbing, extremities motor strength 5/5 Skin no rashes, warm and dry Neurologic moves all extremities and awake Psychiatric Orientation: alert, oriented to person and cooperative Discharge Data Allergies Allergy/AdvReac Type Severity Reaction Status Date / Time Penicillins Allergy Unknown Verified 12/31/18 13:17 rofecoxib Allergy Unknown UNKN Verified 12/31/18 13:17 Sulfa (Sulfonamide Allergy Unknown Verified 12/31/18 13:17 Antibiotics) Consultations 12/31/18 14:18 ED Decision to Admit Stat 12/31/18 17:14 Consult Neurology Routine Ordered Studies 12/31/18 12:37 CT head/brain wo con Stat 12/31/18 17:14 MR brain wo con Routine Hospital Course (1) Left facial numbness: Ddx includes complex migraine vs. TIA given the numbness & possible ptosis, then possible dysarthria (possible Wernicke's?) on the phone with her PCP. At this point, all symptoms have resolved. - MRI brain on 12/31 did not show any stroke or microvasculture disease. - Neurology felt this was part of her complex migraines. No need for anti- platelet as this was not a stroke or TIA. (2) Migraine: History of migraines (though not typically with these neurologic symptoms). - Continue home migraine prophylaxis - Tylenol or triptan PRN (3) TIA (transient ischemic attack): Per patient and , she was told by an ED that she is likely having TIAs when she feels her left face get numb and has some transient ptosis. - It was felt by the neurologist and myself that she is not having TIAs. That this is more likely a component of migraine. - No need for aspirin as outpatient (4) Asthma: No wheezing or shortness of breath. No exacerbation at this time. 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 Now just on observation. - Monitor; no inpatient needs. (6) DVT prophylaxis: SCDs - Low risk per calculator Total Time Total Time Spent Total Time Spent (In Minutes): 35 Discharge Plan Discharge Items Patient Disposition: Home - Self-Care Reason For Visit: FACIAL DROOP AND CONFUSION Discharge Diagnosis: Complex migraine Discharge Goals: Decrease discomfort and Diagnostic testing Activity: Resume your previous activity Non-emergency contact: Primary Care Provider and Neurologist Call non-emergency contact if: your symptoms worsen Follow-up/Referrals: Nic Dunne III, MD [Family Provider] - (Please keep your normally scheduled appointment.) Salma Snell MD [Primary Care Provider] - Diet: Regular Addtl Provider Instructions: [facility], You were admitted to the hospital with left facial numbness and confusion. We did an MRI and did not see any sign of a stroke or any prior small strokes. We do not think you are having mini-strokes at home. We feel these are likely an aspect of your complex migraine headaches. Please continue your home medications. Please follow up with Dr. Dunne in the clinic. Prescriptions: Continued ascorbic acid (vitamin C) [Vitamin C] 1,000 mg Tablet 1 g PO QAM RF: 0 venlafaxine 75 mg capsule,extended release 24hr 75 mg PO DAILY RF: 0 carbamazepine 100 mg tablet extended release 12 hr 100 mg PO DAILY PRN (Reason: Pain) RF: 0 ranitidine HCl 150 mg tablet 150 mg PO BID RF: 0 verapamil 240 mg tablet extended release 240 mg PO DAILY RF: 0 montelukast 10 mg tablet 10 mg PO PM RF: 0 calcium carbonate [Calcium 500] 500 mg calcium (1,250 mg) Tablet,Chewable 1 tab PO QAM RF: 0 topiramate 200 mg tablet 200 mg PO BID RF: 0 albuterol sulfate [ProAir HFA] 90 mcg/actuation HFA aerosol inhaler 2 puff inhalation UD PRN (Reason: Shortness Of Breath Or Wheezing) RF: 0 loratadine [Claritin] 10 mg Tablet 10 mg PO QAM RF: 0 cholecalciferol (vitamin D3) 1,000 unit Tablet 1,000 unit PO QAM RF: 0 Symbicort 160-4.5 mcg/actuation HFA aerosol inhaler 1 inh inhalation QAM RF: 0 Stand-Alone Forms: [facility] Discharge Orders: Discharge Order (Routine); Ordered 01/01/19 Ordered By: Neptali Norris Admission Data Admit Date/Time: 12/31/18 16:01 Attending Provider: Neptali Norris Admit Provider: Neptali Norris Primary Care Provider: Salma Snell Other Providers: Jordan Wynn ; Lizeth Ashby Service: Telemetry Medical Other Interventions: Discharge Summary Assessment (RN) Last Done: 01/01/19 13:49 DC Date/Time DO NOT enter until pt leaves facility: 01/01/19 14:23
== END 2019-01-01 14:23 | disposition home or self-care (01) ==
LOC: ED 11:58 → 2N 11:58

== ENCOUNTER 2020-02-05 04:28 | Inpatient (IN) ==
[2020-02-05] MEDS ORDERED: SODIUM CHLORIDE 0.9% 500 ML IV STA (05:14)
[2020-02-05 05:23] LABS: Appearance Urine Cloudy (Clear); Bacteria Urine Automated 4+ (Negative); Blood Urine 3+ (Negative); Color Urine Dark Yellow; Epithelial Cell Urine Auto 20-30 /lpf (0-5); Glucose Urine UA Negative (Negative); Ketones Urine Trace (Negative); Leukocyte Esterase Urine 2+ (Negative); Nitrite Urine Positive (Negative); Protein Urine 1+ (Negative); RBC Urine Automated >30 /hpf (0-4); Urobilinogen Urine Negative (Negative); WBC Urine Automated >30 /hpf (0-5)
[2020-02-05 05:39] LABS: Hematocrit (blood only) 46.4 % (37-47); Hemoglobin 15.6 g/dL (12.0-16.0); Mean Corpuscular Hgb Conc 33.6 g/dL (32-36); Mean Corpuscular Volume 89.2 fL (80-100); Mean Platelet Volume 12.1 fL (7.4-10.4); Platelet Count 238 K/uL (130-400); RDW Coefficient of Variation 12.9 % (11.5-14.5); White Blood Count 9.31 K/uL (4.8-10.8)
[2020-02-05] MEDS ORDERED: MoRPHine SULFATE 4 MG/ML 1 ML CARP\\VIAL IV STA (05:42)
[2020-02-05] MEDS ORDERED: ONDANSETRON INJ 2 MG/ML 2 ML VIAL IV STA (05:42)
[2020-02-05 05:48] LABS: Bilirubin Urine Negative (Negative); Ictotest Urine Negative (Negative)
[2020-02-05 06:05] LABS: BUN Creatinine Ratio 8.3 (10-20); Calcium 9.5 mg/dl (8.5-10.1); Est GFR (African American) 50.6; Est GFR (Non-African American) 43.7; Potassium 3.6 mmol/L (3.5-5.1)
--- NOTE | 2020-02-05 06:41 | CT Scan Report ---
CT OF THE ABDOMEN AND PELVIS WITH CONTRAST CLINICAL HISTORY: L flank pain, back pain, abd pain COMPARISON STUDY: Pelvic ultrasound January 25, 2016. Abdominal ultrasound January 11, 2016. TECHNIQUE: Following IV administration of 91 mL of Optiray-320, axial images of the abdomen and pelvi s were obtained from the lung bases to the proximal femurs. Images were reviewed in the axial, sagitt al, and coronal planes. IV contrast was administered without complication. Automated exposure contro l was utilized for the study. A dose lowering technique was utilized adhering to the principles of A TAJ. CT DOSE: 873.23 mGy.cm FINDINGS: Lung bases are clear. Note is made of mild left hydronephrosis. There is a 5 mm left renal pelvis calculus and a 5 mm left ureteropelvic junction calculus. There is a 3 mm calculus within lowe r pole of the left kidney. No additional urinary calculi are identified. The liver, spleen, adrenal g lands and pancreas are unremarkable. There is no evidence for a bowel obstruction. There is no ascite s or lymphadenopathy. Caliber and wall thickness of small and large bowel are normal. Major vasculatu re is patent. IMPRESSION: 1. 5 mm left ureteropelvic junction calculus and a 5 mm left renal pelvis calculus. Resultant mild le ft hydronephrosis. 2. 3 mm left renal calculus. ACT 112: Negative or not required by law. Electronically signed by: Bakari Covarrubias M.D. 02/05/2020 6:40 AM
[2020-02-05] MEDS ORDERED: cefTRIAXone SODIUM 1,000 MG/50 ML BAG IV STA (07:03)
[2020-02-05] MEDS ORDERED: SODIUM CHLORIDE 0.9% 1000ML 1,000 ML IV SCH (07:15)
[2020-02-05] MEDS ORDERED: KETOROLAC TROMETHAMINE 15 MG/ML VIAL IV STA (07:42)
--- NOTE | 2020-02-05 07:54 | History & Physical Report ---
Date of Service February 05, 2020 Assessment & Plan (1) Renal colic: Pt with clinical symptoms, will treat with parenteral pain medicine, antiemetics, and Flomax, strain urine CT of abdomen pelvis, 02/05/20 IMPRESSION: 1. 5 mm left ureteropelvic junction calculus and a 5 mm left renal pelvis ca lculus. Resultant mild left hydronephrosis. 2. 3 mm left renal calculus. Patient is abnormal urinalysis concerning for urinary tract infection present on admission she is given Rocephin 2 g intravenously urine culture will be sent (2) Depression: (3) Systemic lupus erythematosus: Currently patient takes no medication for this (4) Fibromyalgia: Refill but fibromyalgia is stable she typically takes Tegretol and occasionally will take Topamax both for headaches and fibromyalgia pain (5) Asthma: Her asthma has been stable most recently History of Present Illness Primary Care Provider: Salma Snell MD 54-year-old female whose had stuttering back pain for the last 3 days. Usually was in her center back rating to her mid central abdomen would last for a few moments usually improve with ambulation. On the day of admission it awoke her in the morning was more severe, ended up radiating to her left flank. Patient present to the ER where she is found to have a 5 mm left UPJ calculus with mild hydro nephrosis. Patient was seen in the ER be taken to the operating suite by Dr. Lozada With medical problems are stable she has had no bleeding issues no problems or chest pain pressure shortness of breath or orthopnea most recently Allergies Allergy/AdvReac Type Severity Reaction Status Date / Time Penicillins Allergy Unknown Hives Verified 02/05/20 05:37 Sulfa (Sulfonamide Allergy Unknown HIVES Verified 02/05/20 05:37 Antibiotics) ibuprofen [From Advil] Allergy DYSPEPSIA Verified 02/05/20 05:37 naproxen [From Aleve] Allergy DYSPEPSIA Verified 02/05/20 05:37 rofecoxib AdvReac Unknown UNKN Verified 02/05/20 05:37 Home Medications Home Medications Medication Instructions Recorded Confirmed Type albuterol sulfate [ProAir HFA] 2 puff INHALATION UD PRN 12/31/18 02/05/20 History ascorbic acid (vitamin C) [Vitamin 1 g PO QAM 12/31/18 02/05/20 History C] budesonide-formoterol [Symbicort] 1 inh INHALATION QAM 12/31/18 02/05/20 History calcium carbonate [Calcium 500] 1 tab PO QAM 12/31/18 02/05/20 History carbamazepine 100 mg PO DAILY PRN 12/31/18 02/05/20 History cholecalciferol (vitamin D3) 1,000 unit PO QAM 12/31/18 02/05/20 History loratadine [Claritin] 10 mg PO QAM 12/31/18 02/05/20 History montelukast 10 mg PO PM 12/31/18 02/05/20 History rizatriptan 10 mg disintegrating 10 mg PO DIRECTED PRN #27 tab 03/31/19 02/05/20 History tablet budesonide-formoterol HFA 80 2 puffs INHALATION BID gm 04/11/19 02/05/20 History mcg-4.5 mcg/actuation aerosol inhaler diclofenac sodium 1 % topical gel 1 % TOPICAL .Applied to affected 04/11/19 02/05/20 History #1 gm hydrocodone 5 mg-acetaminophen 500 1 cap PO DIRECTED PRN cap 04/11/19 02/05/20 History mg capsule topiramate 100 mg tablet 100 mg PO BID #180 tab 01/10/20 02/05/20 Rx fremanezumab-vfrm 225 mg/1.5 mL 225 mg SUBCUT MONTHLY 30 Days #1.5 01/17/20 02/05/20 Rx subcutaneous syringe ml Past Med/Surg History Medical History Asthma (Chronic) 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) Cervical radiculopathy (Acute) Depression (Acute) Fibromyalgia (Acute) Migraine Migraine with aura SLE (systemic lupus erythematosus related syndrome) Spells of decreased attentiveness (Acute) Vitamin D deficiency (Acute) Surgical History S/P breast biopsy, left 12/31/17, Fibroadenoma, Negative for DCIS and invasive CA S/P excision of lipoma Thigh Family History Mother Breast cancer Hepatic failure Father Cancer Myocardial infarction Other Heart disease Social History Preferred Language: Frisian Communication Ability: Effective Scow Hand Required: No Beliefs That Will Affect Care: None Current Living Situation: Spouse and Family Other Information That Helps Us Care for You: No Feels Safe at Home: Yes Safety Concerns: Feels Safe At This Time Smoking Status: Former smoker Second Hand Exposure: No ; Hx Alcohol Use: No Hx Substance Use: No Review of Systems Review of Systems: Moderate distress and fatigue no headache, blurry or double vision no speech or swallowing issues no chest pain, pressure or palpitations no shortness of breath, cough or wheezes Central abdominal pain radiating to her left flank associate with nausea without vomiting this is a crampy crescendo decrescendo pain at times severe at 9/10 Patient claims to have no dysuria, hematuria but was having some frequency no focal joint pain or swelling Generalized upper back pain, left CVA tenderness but no radicular pain no bruising, bleeding or rashes no focal signs of weakness or numbness or altered sensation no complaints or anxiety or depression Physical Exam Physical Exam: The patient appeared well nourished and normally developed. Vital signs as documented. Head exam is normocephalic atraumatic no scleral icterus Neck is without JVD, thyromegaly, or carotid bruits. Lungs are clear to auscultation, no focal loss of breath sounds Cardiac exam, Rhythm is regular.. No murmurs, rubs or gallops. Abdominal exam reveals normal bowel sounds, soft minor tenderness in the epigastrium and left side along with left CVA tenderness to percussion Extremities are nonedematous and both pedal pulses are normal. Neurologic exam is alert and oriented, no focal loss of strength or sensation Skin is without bruises or rashes Psychologically is without concerns for anxiety or depression Results & Data Results & Data ([facility]) Vital Signs (Past 12 Hours) Vital Signs Temp Pulse Pulse Resp BP BP Pulse Ox 02/05/20 07:24 95 H 18 155/89 H 98 02/05/20 05:58 89 20 137/93 99 02/05/20 04:42 98.2 F 84 20 138/91 99 PG Care Time/CCT Total # of Minutes Spent Total Time Spent with Patient: Total time spent is greater than 50% in coordination of care (as documented) at patient's floor/unit and/or counseling patient: Coding Diagnoses Renal colic N23 Depression F32.9 Depression Type: unspecified Systemic lupus erythematosus M32.9 Fibromyalgia M79.7 Asthma J45.909 (1) Depression Depression Type: unspecified Qualified Code(s): F32.9 - Major depressive disorder, single episode, unspecified
--- NOTE | 2020-02-05 08:49 | Urology Consultation ---
Date of Consultation February 05, 2020 Assessment & Plan (1) Renal colic: Proximal left ureteral calculus with hydro and possible UTI. Plan for cysto and stent today. Abx. Will then need outpt f/u for either ESWL or Uscope and laser litho. (2) Ureteral calculus: History of Present Illness History of Present Illness 54 y/o Female with a complex past med hx, presented to the ED with the acute onset of left flank pain, nausea, vomitting, and UTI like sxs. CT scan showed a 5mm proximal left ureteral stone with an additional stone in the left renal pelvis. She denies any hx of stones. Her pain persisted. She was admitted by the hopsitalist and Urology then consulted. Allergies Allergy/AdvReac Type Severity Reaction Status Date / Time Penicillins Allergy Unknown Hives Verified 02/05/20 05:37 Sulfa (Sulfonamide Allergy Unknown HIVES Verified 02/05/20 05:37 Antibiotics) ibuprofen [From Advil] Allergy DYSPEPSIA Verified 02/05/20 05:37 naproxen [From Aleve] Allergy DYSPEPSIA Verified 02/05/20 05:37 rofecoxib AdvReac Unknown UNKN Verified 02/05/20 05:37 Home Medications Home Medications Medication Instructions Recorded Confirmed Type albuterol sulfate [ProAir HFA] 2 puff INHALATION UD PRN 12/31/18 02/05/20 History ascorbic acid (vitamin C) [Vitamin 1 g PO QAM 12/31/18 02/05/20 History C] budesonide-formoterol [Symbicort] 1 inh INHALATION QAM 12/31/18 02/05/20 History calcium carbonate [Calcium 500] 1 tab PO QAM 12/31/18 02/05/20 History carbamazepine 100 mg PO DAILY PRN 12/31/18 02/05/20 History cholecalciferol (vitamin D3) 1,000 unit PO QAM 12/31/18 02/05/20 History loratadine [Claritin] 10 mg PO QAM 12/31/18 02/05/20 History montelukast 10 mg PO PM 12/31/18 02/05/20 History rizatriptan 10 mg disintegrating 10 mg PO DIRECTED PRN #27 tab 03/31/19 02/05/20 History tablet budesonide-formoterol HFA 80 2 puffs INHALATION BID gm 04/11/19 02/05/20 History mcg-4.5 mcg/actuation aerosol inhaler diclofenac sodium 1 % topical gel 1 % TOPICAL .Applied to affected 04/11/19 02/05/20 History #1 gm hydrocodone 5 mg-acetaminophen 500 1 cap PO DIRECTED PRN cap 04/11/19 02/05/20 History mg capsule topiramate 100 mg tablet 100 mg PO BID #180 tab 01/10/20 02/05/20 Rx fremanezumab-vfrm 225 mg/1.5 mL 225 mg SUBCUT MONTHLY 30 Days #1.5 01/17/20 02/05/20 Rx subcutaneous syringe ml Patient History Social History Preferred Language: Mauritian Communication Ability: Effective Instructional Technology Coordinator Required: No Beliefs That Will Affect Care: None Current Living Situation: Family Feels Safe at Home: Yes Smoking Status: Former smoker Second Hand Exposure: No ; Hx Alcohol Use: No Hx Substance Use: No Review of Systems Review of Systems: All systems reviewed & are unremarkable except as noted in HPI & below Physical Exam Constitutional: WD/WN, vitals as above Neck: trachea midline, no thyromegaly Respiratory: normal respiratory effort, lungs clear to auscultation Cardiovascular: RRR, no murmur, no edema Gastrointestinal (Abdomen): normal bowel sounds, soft, nontender, no hepatosplenomegaly Skin: no rashes, warm and dry Genitourinary: no vaginal lesions, no adnexal mass Lymphatic: no cervical or axillary lymphadenopathy Results & Data Vital Signs (Past 12 Hours) Vital Signs Temp Pulse Pulse Resp BP BP Pulse Ox 02/05/20 07:24 95 H 18 155/89 H 98 02/05/20 05:58 89 20 137/93 99 02/05/20 04:42 36.8 C 84 20 138/91 99
[2020-02-05] MEDS ORDERED: MIDAZOLAM HCL 1 MG/ML 2ML VIAL ONE (08:53)
[2020-02-05] MEDS ORDERED: fentaNYL citrate 100 MCG/2 ML VIAL ONE (08:53)
[2020-02-05] MEDS ORDERED: PROPOFOL IV EMULSION 10 MG/ML 20 ML VIAL IV ONE (08:53)
--- NOTE | 2020-02-05 08:55 | Emergency Department Note ---
History of Present Illness General Chief complaint: Flank Pain Stated complaint: PAIN - BACK INTO FRONT Time Seen by Provider: 02/05/20 05:32 History of Present Illness Maximum Pain Intensity: 3 This is a 54-year-old female that presents to the emergency department via private vehicle with complaints of "pain, left lower abdomen/back". The patient states this past Thursday evening she began with what she describes as excruciating pain in the left flank/back. No known trauma or injury. This then subsided. Yesterday the pain returned that she thought perhaps it might of been food poisoning as she noted decreased appetite. She states that the pain then has continued to come and go. Then today around 3 AM the pain became very sharp and abrupt in the left anterior abdomen. She also notes the pain is also in the back. She did vomit upon arrival. She does note nausea as well. No history of kidney stones. She notes a history of lupus. No dysuria, diarrhea or constipation. Home Medications Home Medications Medication Instructions Recorded Confirmed Type albuterol sulfate [ProAir HFA] 2 puff INHALATION UD PRN 12/31/18 02/05/20 History ascorbic acid (vitamin C) [Vitamin 1 g PO QAM 12/31/18 02/05/20 History C] budesonide-formoterol [Symbicort] 1 inh INHALATION QAM 12/31/18 02/05/20 History calcium carbonate [Calcium 500] 1 tab PO QAM 12/31/18 02/05/20 History carbamazepine 100 mg PO DAILY PRN 12/31/18 02/05/20 History cholecalciferol (vitamin D3) 1,000 unit PO QAM 12/31/18 02/05/20 History loratadine [Claritin] 10 mg PO QAM 12/31/18 02/05/20 History montelukast 10 mg PO PM 12/31/18 02/05/20 History rizatriptan 10 mg disintegrating 10 mg PO DIRECTED PRN #27 tab 03/31/19 02/05/20 History tablet budesonide-formoterol HFA 80 2 puffs INHALATION BID gm 04/11/19 02/05/20 History mcg-4.5 mcg/actuation aerosol inhaler diclofenac sodium 1 % topical gel 1 % TOPICAL .Applied to affected 04/11/19 02/05/20 History #1 gm hydrocodone 5 mg-acetaminophen 500 1 cap PO DIRECTED PRN cap 04/11/19 02/05/20 History mg capsule topiramate 100 mg tablet 100 mg PO BID #180 tab 01/10/20 02/05/20 Rx fremanezumab-vfrm 225 mg/1.5 mL 225 mg SUBCUT MONTHLY 30 Days #1.5 01/17/20 02/05/20 Rx subcutaneous syringe ml Allergies Allergy/AdvReac Type Severity Reaction Status Date / Time Penicillins Allergy Unknown Hives Verified 02/05/20 05:37 Sulfa (Sulfonamide Allergy Unknown HIVES Verified 02/05/20 05:37 Antibiotics) ibuprofen [From Advil] Allergy DYSPEPSIA Verified 02/05/20 05:37 naproxen [From Aleve] Allergy DYSPEPSIA Verified 02/05/20 05:37 rofecoxib AdvReac Unknown UNKN Verified 02/05/20 05:37 Past Med/Surg History Medical History Asthma (Chronic) 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) Cervical radiculopathy (Acute) Depression (Acute) Fibromyalgia (Acute) Migraine Migraine with aura SLE (systemic lupus erythematosus related syndrome) Spells of decreased attentiveness (Acute) Vitamin D deficiency (Acute) Surgical History S/P breast biopsy, left 12/31/17, Fibroadenoma, Negative for DCIS and invasive CA S/P excision of lipoma Thigh Family History Mother Breast cancer Hepatic failure Father Cancer Myocardial infarction Other Heart disease Social History Preferred Language: Faroese Communication Ability: Effective 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 Beliefs That Will Affect Care: None Current Living Situation: Family Feels Safe at Home: Yes Smoking Status: Former smoker Second Hand Exposure: No ; Hx Alcohol Use: No Hx Substance Use: No Review of Systems A total of 10 systems reviewed and were otherwise negative Physical Exam Vital Signs Vital Signs - 24 hr 02/05/20 04:42 02/05/20 05:58 02/05/20 07:24 Temperature 36.8 C Temperature Source Oral Pulse Rate 84 Pulse Rate [Right Finger] 89 95 H Pulse Rhythm [Right Finger] Regular Pulse Strength [Right Finger] Normal Respiratory Rate 20 20 18 Respiratory Effort / Characteristics Non-Labored Spontaneous Non-Labored Spontaneous Non-Labored Respiratory Depth Normal Normal Normal Respiratory Pattern Regular Blood Pressure 138/91 Blood Pressure [Right Arm] 137/93 155/89 H Blood Pressure Mean 106 Blood Pressure Mean [Right Arm] 107 111 Blood Pressure Position Sitting Blood Pressure Position [Right Arm] Sitting Pulse Oximetry 99 99 98 Oxygen Delivery Method Room Air Room Air Room Air Sepsis Recent Fever Within 48 Hours No Sepsis Action Taken by Nursing No Action Required VITAL SIGNS - Vital signs and nursing notes were reviewed. Stable and afebrile. GENERAL - 54-year-old female appearing her stated age who is in no acute distress. Communicates well with provider and answers questions appropriately. SKIN - Without rashes. No meningeal or petechial rash. HEAD - NC/AT. EYES - PERRL with EOMI bilaterally. Sclera anicteric. EARS - No deformities of external structures noted on gross examination bilaterally. NOSE - Midline and without cyanosis. No epistaxis or purulent drainage noted. MOUTH/OROPHARYNX - Without perioral cyanosis. NECK - Neck with FROM. No nuchal rigidity. LUNGS - Chest wall symmetric without accessory muscle use, intercostals retr actions, or central cyanosis. Normal vesicular breath sounds CTA B/L. No wheezes, rales, or rhonchi appreciated. CARDIAC - RRR with S1/S2. No murmur, rubs, or gallops appreciated. ABDOMEN - Abdominal contour normal without pulsations or visible masses. BS normoactive all four quadrants. Mild TTP over the abdomen. No palpable masses, hepatosplenomegaly, or ascites noted. MUSCULOSKELETAL: There is reproducible tenderness in the left inferior paraspinous muscular lumbar spine EXTREMITIES - No clubbing or peripheral cyanosis. No pretibial edema present. +5/5 strength noted in UE/LE bilaterally. NEUROLOGIC - Cranial nerves II through XII grossly intact. Sensory intact to light touch throughout. PSYCH - A&O, and cooperates fully with examiner. Pt is very pleasant and interacts well with examiner. Course Administered Medications Discontinued Medications Sodium Chloride (Nss) 500 mls @ 999 mls/hr IV .Q31M STA Stop: 02/05/20 05:44 Last Infusion: 02/05/20 06:00 Dose: 0 mls/hr Documented by: [id number] Admin: 02/05/20 05:17 Dose: 999 mls/hr Documented by: [id number] Ceftriaxone Sodium (Rocephin) 1,000 mg in 50 mls @ 100 mls/hr IV NOW STA Stop: 02/05/20 07:32 Last Admin: 02/05/20 07:25 Dose: 100 mls/hr Documented by: [id number] Sodium Chloride (Nss 1000ml) 1,000 mls @ 999 mls/hr IV .Q1H1M NABOR Stop: 02/05/20 08:15 Last Admin: 02/05/20 07:25 Dose: 999 mls/hr Documented by: [id number] Morphine Sulfate (Morphine Sulfate) 4 mg IV NOW STA Stop: 02/05/20 05:43 Last Admin: 02/05/20 05:56 Dose: 4 mg Documented by: [id number] Ondansetron HCl (Zofran) 4 mg IV NOW STA Stop: 02/05/20 05:43 Last Admin: 02/05/20 05:56 Dose: 4 mg Documented by: [id number] Medical Decision Making Laboratory Data Result diagrams: 02/05/20 05:00 02/05/20 05:00 Lab Results 02/05/20 02/05/20 02/05/20 Range/Units 05:00 05:00 05:00 WBC 9.31 (4.8-10.8) K/uL RBC 5.20 (4.2-5.4) M/uL Hgb 15.6 (12.0-16.0) g/dL Hct 46.4 (37-47) % MCV 89.2 (80-100) fL MCH 30.0 (25-34) pg MCHC 33.6 (32-36) g/dL RDW Std Deviation 42.0 (36.4-46.3) fL RDW Coeff of Estela 12.9 (11.5-14.5) % Plt Count 238 (130-400) K/uL MPV 12.1 H (7.4-10.4) fL Sodium 142 (136-145) mmol/L Potassium 3.6 (3.5-5.1) mmol/L Chloride 109 H (98-107) mmol/L Carbon Dioxide 23 (21-32) mmol/L Anion Gap 10.0 (3-11) BUN 11 (7-18) mg/dl Creatinine 1.36 H (0.6-1.2) mg/dl Est Cr Clr Drug Dosing 48.0 ml/min Est GFR ( Amer) 50.6 Est GFR (Non-Af Amer) 43.7 BUN/Creatinine Ratio 8.3 L (10-20) Glucose 119 H (70-99) mg/dl Calcium 9.5 (8.5-10.1) mg/dl Urine Color Dark Yellow Urine Appearance Cloudy A (Clear) Urine pH 5.0 (4.5-7.5) Ur Specific [place] 1.020 (1.000-1.030) Urine Protein 1+ H (Negative) Urine Glucose (UA) Negative (Negative) Urine Ketones Trace H (Negative) Urine Blood 3+ H (Negative) Urine Nitrite Positive A (Negative) Urine Bilirubin Negative (Negative) Urine Urobilinogen Negative (Negative) Ur Leukocyte Esterase 2+ H (Negative) Urine WBC (Auto) >30 H (0-5) /hpf Urine RBC (Auto) >30 H (0-4) /hpf U Hyaline Cast (Auto) 5-10 H (0-5) /lpf U Epithel Cells (Auto) 20-30 H (0-5) /lpf Urine Bacteria (Auto) 4+ H (Negative) Imaging Data Radiologist's Impression: CT OF THE ABDOMEN AND PELVIS WITH CONTRAST CLINICAL HISTORY: L flank pain, back pain, abd pain COMPARISON STUDY: Pelvic ultrasound January 25, 2016. Abdominal ultrasound January 11, 2016. TECHNIQUE: Following IV administration of 91 mL of Optiray-320, axial images of the abdomen and pelvis were obtained from the lung bases to the proximal femurs. Images were reviewed in the axial, sagittal, and coronal planes. IV contrast was administered without complication. Automated exposure control was utilized for the study. A dose lowering technique was utilized adhering to the principles of ALARA. CT DOSE: 873.23 mGy.cm FINDINGS: Lung bases are clear. Note is made of mild left hydronephrosis. There is a 5 mm left renal pelvis calculus and a 5 mm left ureteropelvic junction calculus. There is a 3 mm calculus within lower pole of the left kidney. No additional urinary calculi are identified. The liver, spleen, adrenal glands and pancreas are unremarkable. There is no evidence for a bowel obstruction. There is no ascites or lymphadenopathy. Caliber and wall thickness of small and large bowel are normal. Major vasculature is patent. IMPRESSION: 1. 5 mm left ureteropelvic junction calculus and a 5 mm left renal pelvis calculus. Resultant mild left hydronephrosis. 2. 3 mm left renal calculus. ACT 112: Negative or not required by law. Electronically signed by: Bakari Covarrubias M.D. 02/05/2020 6:40 AM MDM Narrative Patient was seen and evaluated as above in room C03. Review was performed of nursing notes and vital signs. I did review pertinent previous visits and patient history. After obtaining a thorough history and physical examination the above work up was performed. She presents to us today with left-sided abdominal pain and back pain. She was medicated with antiemetics and analgesics. She was hydrated with fluids. There is no leukocytosis or anemia. The creatinine is 1.36. Urinalysis is concerning for infection. CT scan reveals an obstructing 5 mm left ureteropelvic junction calculus. We elected to provide an IV dose of Rocephin. Patient was aware that given her penicillin allergy there is a small chance of cross-reactivity but this was given without difficulty. I also discussed the presentation with the attending physician and the on-call urologist, Dr. Lozada. We discussed options of care and patient was amenable to staying in the hospital as it is felt that with her UTI, obstructing 5 mm stone and pain further evaluation and management is warranted. I also discussed this with the hospitalist. Who admitted the patient. The urologist came to evaluate the patient. Plan is now to take the patient to the operative suite for further care. Please refer to further documentation regarding her stay. In the evaluation and treatment of this patient the following differential diagnosis entertained: Fracture, dislocation, subluxation, cauda equina syndrome, AAA, diverticulitis, appendicitis, torsion, osteomyelitis, pyelonephritis, ureteral calculus, infected stone, piriformis syndrome, strain, sprain, among others. Impression & Plan Ureteral obstruction, left, Calculus, ureteral, Hydronephrosis, UTI (urinary tract infection) Discharge Plan Visit Data Chief Complaint: Flank Pain Stated Complaint: PAIN - BACK INTO FRONT ED Provider: Divya Cast ED Midlevel Provider: Bamat,Cody W Discharge Problem: Ureteral obstruction, left, Calculus, ureteral, Hydronephrosis, UTI (urinary tract infection) Patient Disposition: Admitted As Inpatient Condition: Good Forms Stand Alone Forms: [facility] [employer] Prescriptions Prescriptions: No Action topiramate 100 mg tablet 100 mg PO BID Qty: 180 RF: 0 fremanezumab-vfrm 225 mg/1.5 mL syringe 225 mg subcut MONTHLY 30 Days Qty: 1.5 RF: 0 rizatriptan 10 mg tablet,disintegrating 10 mg PO DIRECTED PRN (Reason: Migraine Headache) Qty: 27 RF: 0 diclofenac sodium 1 % gel 1 % topical .Applied to affected Qty: 1 RF: 0 Symbicort 80-4.5 mcg/actuation HFA aerosol inhaler 2 puffs inhalation BID RF: 0 hydrocodone-acetaminophen 5-500 mg capsule 1 cap PO DIRECTED PRN (Reason: Pain) RF: 0 ascorbic acid (vitamin C) [Vitamin C] 1,000 mg Tablet 1 g PO QAM RF: 0 carbamazepine 100 mg tablet extended release 12 hr 100 mg PO DAILY PRN (Reason: Pain) RF: 0 montelukast 10 mg tablet 10 mg PO PM RF: 0 calcium carbonate [Calcium 500] 500 mg calcium (1,250 mg) Tablet,Chewable 1 tab PO QAM RF: 0 albuterol sulfate [ProAir HFA] 90 mcg/actuation HFA aerosol inhaler 2 puff inhalation UD PRN (Reason: Shortness Of Breath Or Wheezing) RF: 0 loratadine [Claritin] 10 mg Tablet 10 mg PO QAM RF: 0 cholecalciferol (vitamin D3) 1,000 unit Tablet 1,000 unit PO QAM RF: 0 budesonide-formoterol [Symbicort] 160-4.5 mcg/actuation HFA aerosol inhaler 1 inh inhalation QAM RF: 0 Referrals Referrals: Salma Snell MD [Primary Care Provider] -
--- NOTE | 2020-02-05 09:26 | Anesthesiology Consultation ---
Date of Service February 05, 2020 Assessment & Plan ASA [id number] Proposed Anesthesia Anesthesia Type: General Risk / Benefits Reviewed With: PT / POA / Parent / Guardian, Accepts Plan and Informed Consent Obtained History Surgery Operation Date: 02/05/20 09:00 Proposed Procedures p Ureteral Stent Insertion/Removal - Kingsley Lozada MD Height/Weight Height: 5 ft 2 in Weight: 87.5 kg Allergies Allergy/AdvReac Type Severity Reaction Status Date / Time Penicillins Allergy Unknown Hives Verified 02/05/20 05:37 Sulfa (Sulfonamide Allergy Unknown HIVES Verified 02/05/20 05:37 Antibiotics) ibuprofen [From Advil] Allergy DYSPEPSIA Verified 02/05/20 05:37 naproxen [From Aleve] Allergy DYSPEPSIA Verified 02/05/20 05:37 rofecoxib AdvReac Unknown UNKN Verified 02/05/20 05:37 Medications Home Medications Medication Instructions Recorded Confirmed Last Taken albuterol sulfate [ProAir HFA] 2 puff INHALATION UD PRN 12/31/18 02/05/20 Unknown ascorbic acid (vitamin C) [Vitamin 1 g PO QAM 12/31/18 02/05/20 12/31/18 C] budesonide-formoterol [Symbicort] 1 inh INHALATION QAM 12/31/18 02/05/20 12/31/18 calcium carbonate [Calcium 500] 1 tab PO QAM 12/31/18 02/05/20 12/31/18 carbamazepine 100 mg PO DAILY PRN 12/31/18 02/05/20 Unknown cholecalciferol (vitamin D3) 1,000 unit PO QAM 12/31/18 02/05/20 12/31/18 loratadine [Claritin] 10 mg PO QAM 12/31/18 02/05/20 12/31/18 montelukast 10 mg PO PM 12/31/18 02/05/20 12/30/18 rizatriptan 10 mg disintegrating 10 mg PO DIRECTED PRN #27 tab 03/31/19 02/05/20 Unknown tablet budesonide-formoterol HFA 80 2 puffs INHALATION BID gm 04/11/19 02/05/20 Unknown mcg-4.5 mcg/actuation aerosol inhaler diclofenac sodium 1 % topical gel 1 % TOPICAL .Applied to affected 04/11/19 02/05/20 Unknown #1 gm hydrocodone 5 mg-acetaminophen 500 1 cap PO DIRECTED PRN cap 04/11/19 02/05/20 Unknown mg capsule topiramate 100 mg tablet 100 mg PO BID #180 tab 01/10/20 02/05/20 Unknown fremanezumab-vfrm 225 mg/1.5 mL 225 mg SUBCUT MONTHLY 30 Days #1.5 01/17/20 02/05/20 Unknown subcutaneous syringe ml NPO Date Last Intake of Fluids: 02/05/20 Time Last Intake of Fluids: 00:00 Date Last Intake of Solids: 02/05/20 Time Last Intake of Solids: 00:00 Past Medical History Medical History Asthma (Chronic) 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) Cervical radiculopathy (Acute) Depression (Acute) Fibromyalgia (Acute) Migraine Migraine with aura SLE (systemic lupus erythematosus related syndrome) Spells of decreased attentiveness (Acute) Vitamin D deficiency (Acute) Exercise / Class Metabolic Activity II 4-5 Yardwork/Stairs/Walk up hill Past Family History Family History Mother Breast cancer Hepatic failure Father Cancer Myocardial infarction Other Heart disease Past Surgical History Surgical History S/P breast biopsy, left 12/31/17, Fibroadenoma, Negative for DCIS and invasive CA S/P excision of lipoma Thigh Past Anesthesia History No Hx of Anesthesia Complications and No Family Hx of Anesthesia Complications History of PONV No Hx of PONV and No Hx of Motion Sickness Social History Smoking Status: Former smoker Hx Alcohol Use: No Hx Substance Use: No Review of Systems denies fever/cough/ colds/ chest pain/ SOB/ FUAD Constitutional: no fever and no chills Respiratory: no cough and no dyspnea denies FUAD Cardiovascular: no chest pain and no dyspnea on exertion Physical Exam Vital Signs Last Vital Signs Temp 36.8 C 02/05/20 04:42 Pulse 84 02/05/20 08:42 Resp 16 02/05/20 08:42 BP 127/76 02/05/20 08:42 Pulse Ox 97 02/05/20 08:42 ENMT Mouth: no TMJ abnormality and no dentition abnormality Thyromental Distance: > or= 3.5 Finger Breadths Mallampati Class: II Neck neck extension not limited Respiratory normal respiratory effort; no respiratory distress Auscultation: lungs clear to auscultation bilaterally Cardiovascular Rate/Rhythm: regular rate and regular rhythm Neurologic moves all extremities Psychiatric Orientation: alert and oriented x 3 Testing Laboratory Results 02/05/20 05:00 02/05/20 05:00 Urine Color Dark Yellow 02/05/20 05:00 Urine Appearance Cloudy (Clear) A 02/05/20 05:00 Urine pH 5.0 (4.5-7.5) 02/05/20 05:00 Ur Specific [place] 1.020 (1.000-1.030) 02/05/20 05:00 Urine Protein 1+ (Negative) H 02/05/20 05:00 Urine Glucose (UA) Negative (Negative) 02/05/20 05:00 Urine Ketones Trace (Negative) H 02/05/20 05:00 Urine Nitrite Positive (Negative) A 02/05/20 05:00 Ur Leukocyte Esterase 2+ (Negative) H 02/05/20 05:00 Urine WBC (Auto) >30 /hpf (0-5) H 02/05/20 05:00 Urine RBC (Auto) >30 /hpf (0-4) H 02/05/20 05:00 U Hyaline Cast (Auto) 5-10 /lpf (0-5) H 02/05/20 05:00 U Epithel Cells (Auto) 20-30 /lpf (0-5) H 02/05/20 05:00 Urine Bacteria (Auto) 4+ (Negative) H 02/05/20 05:00
[2020-02-05] MEDS ORDERED: ONDANSETRON INJ 2 MG/ML 2 ML VIAL ONE (10:08)
--- NOTE | 2020-02-05 10:20 | Operative Report ---
Post Operative Report Pre & Post Diagnosis Operation Date: 02/05/20 09:00 <No data on this case meets the specified criteria> Left ureteral calculus I identified the patient and participated in the time-out.: Yes Procedure Operation Date: 02/05/20 09:00 <No data on this case meets the specified criteria> Cystoscopy, left retrograde pyelogram, left ureteral stent placement Surgeon Kingsley Lozada MD Telegraphic Typewriter Repairer none Estimated Blood Loss 0 Findings Consistent with Post-Op Diagnosis Specimens none Description of Procedure stent placement on left side. I attest to the content of the Intraoperative Record and any orders documented therein. Any exceptions are noted below.
--- NOTE | 2020-02-05 10:41 | Anesthesiology Progress Note ---
Date of Service February 05, 2020 Anesthesia Post Procedure Vital Signs Vital Signs: Temp Pulse Pulse Pulse Resp BP BP 02/05/20 10:28 36.5 C 97 H 19 142/89 H 02/05/20 08:42 84 16 127/76 02/05/20 07:24 95 H 18 155/89 H 02/05/20 05:58 89 20 137/93 02/05/20 04:42 36.8 C 84 20 138/91 Pulse Ox 02/05/20 10:28 100 02/05/20 08:42 97 02/05/20 07:24 98 02/05/20 05:58 99 02/05/20 04:42 99 Transfer of Care Handoff Completed per policy Notes Mental Status: alert / awake / arousable and participated in evaluation Patient Amnestic to Procedure: Yes Nausea / Vomiting: adequately controlled Pain: adequately controlled Airway Patency, RR, SpO2: stable & adequate BP & HR: stable & adequate Hydration State: stable & adequate Anesthetic Complications: no major complications apparent and Pt Satisfied with anesthetic care
--- NOTE | 2020-02-05 10:42 | Fluoroscopy Report ---
FL retrograde includes kub CLINICAL HISTORY: STENT PLACEMENT COMPARISON STUDY: CT of the abdomen and pelvis performed earlier today. FLUOROSCOPY TIME: 14 seconds. FLUOROSCOPIC IMAGES: 4 FINDINGS: Fluoroscopy was provided for left retrograde exam with ureteral stent insertion. Contrast w ithin the collecting system and bladder is from recent contrast-enhanced CT. Stent is appropriately p ositioned. IMPRESSION: Fluoroscopy provided for left retrograde exam with ureteral stent insertion. ACT 112: Negative or not required by law. Electronically signed by: Bakari Covarrubias M.D. 02/05/2020 10:41 AM
--- NOTE | 2020-02-05 10:47 | Operative Report (OR) ---
DATE OF OPERATION: 02/05/2020 SURGEON: Kingsley Lozada MD LUBRICATING ENGINEER: None. PREOPERATIVE DIAGNOSIS: Left ureteral calculus. POSTOPERATIVE DIAGNOSIS: Left ureteral calculus. PROCEDURES PERFORMED: Cystoscopy, left retrograde pyelogram, left ureteral stent placement. ANESTHESIA: Monitored anesthesia care. COMPLICATIONS: None. SPECIMENS: None. DRAINS: A 6 Yoruba x 26 cm ureteral stent. ESTIMATED BLOOD LOSS: Minimal. CONDITION: Stable. INDICATIONS: Tami recently presented with left sided flank pain. CT scan showed an obstructing left ureteral calculus, now presents for stent placement. DESCRIPTION OF PROCEDURE: The patient was brought to the operative suite and positively identified, placed on the table in supine position. After the induction of general anesthesia, placed in dorsal lithotomy position and the genitalia prepped and draped in sterile fashion. Preoperative antibiotics were administered and a timeout was performed. A rigid cystoscope was passed through the urethra and bladder. The urethra was normal. The bladder was unremarkable. I turned my attention toward the left ureteral orifice. This was intubated with an open-ended catheter. Retrograde pyelogram was performed showing a filling defect in the proximal ureter consistent with the stone seen on the previous CT scan, the results were hydronephrosis. A sensor wire was passed up to the level of the renal pelvis and a 6-Yoruba x 26 cm ureteral stent was placed with good curl seen proximally and distally. The strings were cut short and the bladder was drained. Final fluoroscopic images were adequate and showing appropriate stent placement. The patient tolerated the procedure well. Sponge and needle counts were correct. Taken to PACU in stable condition. I attest to the content of the Intraoperative Record and any orders documented therein. Any exception s are noted below.
[2020-02-05] MEDS ORDERED: ALUMINUM/MAGNESIUM SUSP 30 ML UDC PO PRN (10:58)
[2020-02-05] MEDS ORDERED: MoRPHine SULFATE 4 MG/ML 1 ML CARP\\VIAL IV PRN (10:58)
[2020-02-05] MEDS ORDERED: BUDESONIDE/FORMOTEROL FUMARATE 160/4.5 60 PUFFS/INHALER INH SCH (10:58)
[2020-02-05] MEDS ORDERED: ONDANSETRON INJ 2 MG/ML 2 ML VIAL IV PRN (10:58)
[2020-02-05] MEDS ORDERED: ACETAMINOPHEN 325 MG TAB PO PRN (10:58)
[2020-02-05] MEDS ORDERED: MoRPHine SULFATE 2 MG/ML CARP IV PRN (10:58)
[2020-02-05] MEDS ORDERED: CARBAMAZEPINE 100 MG TABCR PO PRN (10:58)
[2020-02-05] MEDS ORDERED: POLYETHYLENE (MIRALAX) 17 GM PACK PO PRN (10:58)
[2020-02-05] MEDS ORDERED: OXYCODONE HCL IR 5 MG TAB (IMMEDIATE RELEASE) PO PRN (10:58)
[2020-02-05] MEDS ORDERED: CONRAY 60% 50 ML VIAL INSTIL SCH (11:15)
[2020-02-05] MEDS ORDERED: ePHEDrine sulfate 50 MG/ML AMP IV PRN (11:18)
[2020-02-05] MEDS ORDERED: fentaNYL citrate 100 MCG/2 ML VIAL IV PRN (11:18)
[2020-02-05] MEDS ORDERED: ATROPINE SULFATE 0.1 MG/ML 10ML SYR IV PRN (11:18)
[2020-02-05] MEDS ORDERED: ALBUTEROL HFA 8 GM INHALER INH PRN (11:20)
[2020-02-05] MEDS ORDERED: RIZATRIPTAN BENZOATE MLT 10 MG TAB PO PRN (11:22)
[2020-02-05] MEDS: SODIUM CHLORIDE 0.9% 1000ML 1,000 ML IV SCH ×3 (12:55→21:49)
[2020-02-05] MEDS: TOPIRAMATE 100 MG TAB PO SCH ×2 (12:55→20:42)
[2020-02-05] MEDS: ASCORBIC ACID 500 MG TAB PO SCH (12:55)
[2020-02-05] MEDS: CHOLECALCIFEROL 1,000 UNITS 25 MCG TAB PO SCH (12:55)
[2020-02-05] MEDS: LORATADINE 10 MG TAB PO SCH (12:55)
[2020-02-05] MEDS: TAMSULOSIN HCL 0.4 MG CAP PO SCH (12:55)
[2020-02-05] MEDS: FLUTICASONE/VILANTEROL 200/25MCG 14 PUFFS/INHALER INH SCH (20:42)
[2020-02-05] MEDS ORDERED: MONTELUKAST SODIUM 10 MG TABLET PO SCH (21:00)
[2020-02-06] MEDS: SODIUM CHLORIDE 0.9% 1000ML 1,000 ML IV SCH ×3 (02:36→13:13)
[2020-02-06] MEDS: FLUTICASONE/VILANTEROL 200/25MCG 14 PUFFS/INHALER INH SCH (08:00)
[2020-02-06] MEDS ORDERED: cefTRIAXone SODIUM 2,000 MG in DEXTROSE 5% 50 ML IV SCH (08:00)
[2020-02-06] MEDS: TAMSULOSIN HCL 0.4 MG CAP PO SCH (08:01)
[2020-02-06] MEDS: LORATADINE 10 MG TAB PO SCH (08:01)
[2020-02-06] MEDS: TOPIRAMATE 100 MG TAB PO SCH (08:01)
[2020-02-06] MEDS: CHOLECALCIFEROL 1,000 UNITS 25 MCG TAB PO SCH (08:02)
[2020-02-06] MEDS: ASCORBIC ACID 500 MG TAB PO SCH (08:02)
--- NOTE | 2020-02-06 14:14 | Discharge Summary ---
Date of Service February 06, 2020 Admission HPI Per Admitting Provider 54-year-old female whose had stuttering back pain for the last 3 days. Usually was in her center back rating to her mid central abdomen would last for a few moments usually improve with ambulation. On the day of admission it awoke her in the morning was more severe, ended up radiating to her left flank. Patient present to the ER where she is found to have a 5 mm left UPJ calculus with mild hydro nephrosis. Patient was seen in the ER be taken to the operating suite by Dr. Lozada With medical problems are stable she has had no bleeding issues no problems or chest pain pressure shortness of breath or orthopnea most recently Principal Diagnosis Left ureteral stone with associated UTI Discharge Exam Constitutional well developed and + overweight; no acute distress Eyes PERRL, conjunctivae normal, anicteric sclerae ENMT external ear and nose normal, oropharynx normal Neck trachea midline, no thyromegaly Respiratory normal respiratory effort, lungs clear to auscultation Cardiovascular RRR, no murmur, no edema Gastrointestinal (Abdomen) normal bowel sounds, soft, nontender, no hepatosplenomegaly Musculoskeletal no cyanosis or clubbing, extremities motor strength 5/5 Skin no rashes, warm and dry Neurologic patellar DTR's 2+ bilat, sensation intact and PERRL, EOMI, accommodation nl, no face palsy, no dysarthria Psychiatric A+Ox3, euthymic affect Lymphatic no cervical or axillary lymphadenopathy Discharge Data Allergies Allergy/AdvReac Type Severity Reaction Status Date / Time Penicillins Allergy Unknown Hives Verified 02/05/20 05:37 Sulfa (Sulfonamide Allergy Unknown HIVES Verified 02/05/20 05:37 Antibiotics) ibuprofen [From Advil] Allergy DYSPEPSIA Verified 02/05/20 05:37 naproxen [From Aleve] Allergy DYSPEPSIA Verified 02/05/20 05:37 rofecoxib AdvReac Unknown UNKN Verified 02/05/20 05:37 Consultations 02/05/20 07:58 ED Decision to Admit Stat Procedures Performed Operation Date: 02/05/20 09:00 Actual Procedures p Cystoscopy, Left Retrograde Pyleogram and Left Insertion of Ureteral Stent(Left) - Kingsley Lozada MD Ordered Studies 02/05/20 05:42 CT abd pelvis IV con only Stat 02/05/20 08:42 FL retrograde includes kub Routine Hospital Course (1) Renal colic: Pt with clinical symptoms, treated with Flomax, pain control, fluids and Rocephin CT of abdomen pelvis, 02/05/20 IMPRESSION: 1. 5 mm left ureteropelvic junction calculus and a 5 mm left renal pelvis calculus. Resultant mild left hydronephrosis. 2. 3 mm left renal calculus. Dr. Lozada took for cystoscopy and left ureteral stent day prior to discharge clear for d/c to home per urology, their office will arrange follow up vitals stable, renal function stable d/c on [place], Flomax, Cipro (2) UTI (urinary tract infection): urine culture with E coli, joy sensitive complete full course of Cipro at home (3) Depression: mood stable (4) Systemic lupus erythematosus: Currently patient takes no medication for this (5) Fibromyalgia: Refill but fibromyalgia is stable she typically takes Tegretol and occasionally will take Topamax both for headaches and fibromyalgia pain (6) Asthma: Her asthma has been stable most recently Total Time Total Time Spent Total Time Spent (In Minutes): 32 minutes Total Time Includes: Examination of the Patient, Discharge Planning, Medication Reconciliation and Communication With Other Providers (Dr. Lozada) Discharge Plan Discharge Items Patient Disposition: Home - Self-Care Reason For Visit: RENAL COLIC,UTI Discharge Diagnosis: Left ureteral stone UTI Condition on Discharge: Good Goals: complete course of antibiotic follow up with [facility] for definitive stone management Activity: Resume your previous activity Driving/Machine Use: Resume 3 days after discharge Weightbearing: Full weightbearing Non-emergency contact: Primary Care Provider and Urologist Call non-emergency contact if: you have any medication questions, your symptoms worsen and you have a fever Follow-up/Referrals: Olegario Lobo DO [Physician] - (one week, his office should contact) Salma Snell MD [Primary Care Provider] - (one week) Diet: Regular Addtl Attending Provider Instructions: Medications: - FLOMAX: 0.4mg daily for 14 days, helps relax urinary tract - NORCO: take as needed for any pain, you can use Tylenol as first line, take the [place] if needed - CIPROFLOXACIN: antibiotic, take twice a day for 10 days, next dose due tomorrow morning I will notify you if antibiotics need to change based off of final culture/sensitivity Left ureteral stone, UTI treated with cystoscopy, left ureteral stent placed on 02/04 tolerated well, okay for discharge from urology perspective need to treat UTI, stay well hydrated and well nourished, get rest plan for close follow up with [facility] in the next 1-2 weeks Pending Studies at Discharge: Yes Studies:: urine culture, preliminary growing gram negative bacilli Stand-Alone Forms: My [facility], Opioid Pain Management, Smoking Cessation Medications and DC Order Prescriptions: New tamsulosin 0.4 mg Capsule 0.4 mg PO QAM 14 Days Qty: 14 RF: 0 hydrocodone-acetaminophen [[place]] 5-325 mg tablet 1 tab PO Q8H PRN (Reason: pain) Qty: 20 RF: 0 ciprofloxacin HCl 500 mg tablet 500 mg PO BID Qty: 20 RF: 0 Continued rizatriptan 10 mg tablet,disintegrating 10 mg PO DIRECTED PRN (Reason: Migraine Headache) Qty: 27 RF: 0 ascorbic acid (vitamin C) [Vitamin C] 1,000 mg Tablet 1 g PO QAM RF: 0 montelukast 10 mg tablet 10 mg PO PM RF: 0 calcium carbonate [Calcium 500] 500 mg calcium (1,250 mg) Tablet,Chewable 1 tab PO QAM RF: 0 albuterol sulfate [ProAir HFA] 90 mcg/actuation HFA aerosol inhaler 2 puff inhalation UD PRN (Reason: Shortness Of Breath Or Wheezing) RF: 0 loratadine [Claritin] 10 mg Tablet 10 mg PO QAM RF: 0 cholecalciferol (vitamin D3) 1,000 unit Tablet 1,000 unit PO QAM RF: 0 budesonide-formoterol [Symbicort] 160-4.5 mcg/actuation HFA aerosol inhaler 1 inh inhalation QAM RF: 0 Discontinued hydrocodone-acetaminophen 5-500 mg capsule 1 cap PO DIRECTED PRN (Reason: Pain) RF: 0 No Action fremanezumab-vfrm 225 mg/1.5 mL syringe 225 mg subcut MONTHLY 30 Days Qty: 1.5 RF: 0 Discharge Orders: Discharge Order (Routine); Ordered 02/06/20 Ordered By: Jordan Oleary/Other Patient Handouts: Stents Ureteral, Kidney Stones Admission Data Admit Date/Time: 02/05/20 09:11 Attending Provider: Jordan Wynn Admit Provider: Kingsley Andrade Primary Care Provider: Salma Snell Other Providers: Kingsley Andrade Other Interventions: Discharge Summary Assessment (RN) Last Done: 02/06/20 14:21 DC Date/Time DO NOT enter until pt leaves facility: 02/06/20 15:09 Coding Level of Care Code D/C Day Management >30 mins Diagnoses Renal colic N23 UTI (urinary tract infection) N39.0 Depression F32.9 Depression Type: unspecified Systemic lupus erythematosus M32.9 Fibromyalgia M79.7 Asthma J45.909
== END 2020-02-06 15:09 | disposition home or self-care (01) | DRG 660 ==
LOC: ED 04:28 → OR 09:10 → SUATTDRO 09:11 → 3E 09:11